=== PATIENT | male | born 1970 | race Caucasian/White ===

== ENCOUNTER 2020-06-29 21:13 | Inpatient (IN) | payer MEDICARE ==
[~2020-06-29] VITALS: Ht 188 cm; Wt 129.7 kg
--- NOTE | ~2020-06-29 | EEG ---
PATIENT:GINGER AHUJA MEDICAL RECORD: [id number] DATE OF : 74 LOCATION:D.230 D.ICU ADMISSION DATE: 06/29/20 REFERRING PHYSICIAN: INTERPRETING PHYSICIAN: JUANITA MORAES MD DATE OF SERVICE: 07/22/2020 DATE OF EE07/22/2020 ROOM: 2302 ORDERED BY: Dr. Moraes. CASE HISTORY: A 50-year-old male admitted on 06/30/2020 with pancreatitis, ultimately becoming necrotizing pancreatitis complicated by renal failure, metabolic encephalopathy, sepsis, thrombocytopenia. MEDICATIONS: Phentermine, vancomycin, vasopressin. PROCEDURE IN DETAIL: EEG done as a routine bedside portable recording using the standard 10/20 international electrode system. A 16 channel was used with 17th as EKG. Photic stimulation done as activation procedures. DESCRIPTION: EEG opens with the patient unresponsive, off sedation with record displaying diffuse low amplitude background slowing primarily in 3-4 Hz range, occasionally 4-5 Hz. No asymmetry in background slowing is noted. No epileptiform change such as spike, polyspike or spike and wave is seen. Photic stimulation did not yield a photoparoxysmal response. IMPRESSION: Prominently abnormal EEG with background slowing diffusely suggesting encephalopathy with etiologies that would include metabolic and infectious encephalopathies. No evidence of asymmetry suggesting a structural abnormality, no evidence of seizure. TRANSINT:[id number] Voice Confirmation ID: [id number] DOCUMENT ID: [id number] JUANITA MORAES MD CC: [id number] DICTATION DATE: 07/22/20 1214 LEAF CONDITIONER HELPER: 07/22/20 1343 ADM IN [facility] [address] [place] [address]
--- NOTE | 2020-06-29 21:45 | NUR ---
RECEIVED VIA [facility] FROM [facility], PLACED ON TELEMTRY-FLUTTER, ANAND-MichelleCHEST-TRIPLE LUMEN, HELPED EGG PROCESSOR CLEAN UP PT, BED IS LOW, SRX2, CALL LIGHT IN REACH, WILL CONTINUE PLAN OF CARE
--- NOTE | 2020-06-29 22:00 | NUR ---
DR CALIX ON FLOOR TO SEE PATIENT. ORDERS RECIEVED TO ADMIT TO UNIT, LIST OFF MEDICATIONS THAT PATIENT IS CURRENTLY TAKING FOR REVIEW IN AM. CONSULT FOR RENALS TO SEE PATIENT.
[2020-06-30] VITALS: BP 144/101
[2020-06-30] MEDS ORDERED: LASIX80 MG PO (00:09)
[2020-06-30] MEDS ORDERED: OMEPRAZOLE20 M1 PO (00:10)
[2020-06-30] MEDS ORDERED: DULCOLAX10 MG/SUPP RC (00:11)
[2020-06-30] MEDS ORDERED: FERROUS SULFAT325 MG PO (00:12)
[2020-06-30] MEDS ORDERED: NORMODYNE / TR200 MG PO (00:13)
[2020-06-30] MEDS ORDERED: MIRALAX17 GM PO (00:14)
[2020-06-30] MEDS ORDERED: CARAFATE1 G PO (00:15)
[2020-06-30 02:52] VITALS: BP 144/101; BMI 29.4
[2020-06-30 04:00] VITALS: BP 148/97
[2020-06-30 05:59] LABS: BASOPHILS 0.1 % (0-2); EOSINOPHILS 0.4 % (0-7); HEMATOCRIT 27.7 % (42.0-54.0); HEMOGLOBIN 9.3 g/dL (13.5-17.5); IMMATURE GRANULOCYTES 1.3 % (0-5); LYMPHOCYTES 4.7 % (15-50); MCH 27.4 pg (26.0-34.0); MCHC 33.6 g/dL (31.0-37.0); MCV 81.7 fL (80.0-100.0); MEAN PLATELET VOLUME 10.6 fL (7.4-10.4); MONOCYTES 5.9 % (2-11); NEUTROPHILS 87.6 % (40-80); PLATELET COUNT 244 10x3/uL (130-400); RBC 3.39 10x6/uL (4.20-6.10); RDW 16.5 % (11.5-14.5); WBC 13.8 10x3/uL (4.8-10.8)
[2020-06-30 06:51] LABS: ANION GAP 24.3 mmol/L (8-16); CALCIUM 7.1 mg/dL (8.5-10.1); CARBON DIOXIDE 16.9 mmol/L (21.0-32.0); CREATININE - SERUM 9.4 mg/dL (0.6-1.3); MAGNESIUM - SERUM 2.4 mg/dL (1.8-2.4); POTASSIUM - SERUM 4.2 mmol/L (3.5-5.1)
[2020-06-30 07:02] LABS: PHOSPHOROUS 10.1 mg/dL (2.5-4.9)
[2020-06-30 10:15] VITALS: BP 157/88
[2020-06-30 11:07] LABS: % SATURATION 21 % (15-55); IRON 21 ug/dl (35-150); TOTAL IRON BIND CAPACITY 98 ug/dl (260-445); UNSAT IRON BIND CAPACITY 77 ug/dl (150-375)
[2020-06-30 13:05] VITALS: BP 167/92
[2020-06-30 13:35] VITALS: BMI 29.4
[2020-06-30 15:28] VITALS: Ht 188 cm; Wt 129.7 kg
--- NOTE | 2020-06-30 16:14 | NUR ---
CARDIZEM BOLUS ADMINISTERED AND CARDIZEM DRIP INITIATED @5ML/HR VIA L.SUB CVL. WILL CTM.
--- NOTE | 2020-06-30 17:10 | NUR ---
CVL DRESSING CHANGED TO LEFT SUBCLAVIAN PER PROTOCOL. TRIPLE LUMEN WAS CLEANED THOROUGHLY WITH CHLOROHEXIDINE, NEW DRESSING PLACED, LINES CLEANED, AND DRESSING LABELED PER PROTOCOL. CVL IS SUTURED IN PLACE. LINES FLUSHED, CLAMPED, AND NEW SWAP CAPS IN PLACE ALL WHILE MAINTAINING PROPER STERILITY. CARDIZEM CURRENTLY INFUSING VIA BLUE PORT ON CVL TRIPPLE LUMEN TO LEFT SUBCLAVIAN AT 5ML/HR.
--- NOTE | 2020-06-30 17:15 | NUR ---
DRESSING CHANGED TO RIGHT JUGULAR TRIALYSIS PER PROTOCOL. MASSIVE AMOUNTS OF TAPPED WERE REMOVED FROM THE DRESSING WELL TAPE THAT WAS STUCK TO THE PATIENTS HEAD AND EAR. DRESSING ITSELF WAS REMOVED. SKIN WAS COMPLETELY SATURED WITH BROWN, BLOOD DRAINAGE. SKIN WAS SATURATED, MOIST, AND THE INCISION FOR THE CATHETER HAD BEGUN TO ERRODE. CLEANED SITE AND LINES WITH CHLOROHEXIDINE, APPLIED NEW DRESSING, AND LABELED DRESSING ALL WHILE MAINTAINING STERILILTY. PT WAS CLEANED THOROUGHLY. ONLY TWO SMALL SUTURES WERE VISIBLE THE LINE HAD NOTICEABLY BEEN MOVED AND ADJUSTED. NEW DRESSING IN PLACE. WILL CTM.
--- NOTE | 2020-06-30 19:30 | NUR ---
RECEIVED REPORT, WILL ASSUME CARE OF PT, IV-L.MARCELINA. TRIPLE LUMEN-CARDIMEREDITHM @5, RIJ-SL, WILL KEEP NPO AFTER MIDNIGHT-FOR HEMOSPLIT PLACEMENT TOMORROW, PT IS CONFUSED, [id number], DENIES ANY NEEDS AT THIS TIME, BED IS LOW, SRX2, CALL LIGHT IN REACH, WILL CONTINUE PLAN OF CARE
[2020-06-30 20:00] VITALS: BP 145/100
--- NOTE | 2020-06-30 23:28 | NUR ---
EKG COMPLETE, PLACED ON CHART
[2020-07-01] VITALS: BP 136/90
[2020-07-01 04:00] VITALS: BP 137/92
[2020-07-01 04:49] LABS: BASOPHILS 0.2 % (0-2); EOSINOPHILS 0.4 % (0-7); HEMATOCRIT 26.8 % (42.0-54.0); HEMOGLOBIN 8.6 g/dL (13.5-17.5); IMMATURE GRANULOCYTES 0.8 % (0-5); LYMPHOCYTES 3.2 % (15-50); MCHC 32.1 g/dL (31.0-37.0); MEAN PLATELET VOLUME 10.2 fL (7.4-10.4); NEUTROPHILS 90.4 % (40-80); PLATELET COUNT 234 10x3/uL (130-400); RBC 3.31 10x6/uL (4.20-6.10); RDW 16.4 % (11.5-14.5); WBC 16.7 10x3/uL (4.8-10.8)
[2020-07-01 05:06] LABS: ANION GAP 21.6 mmol/L (8-16); CARBON DIOXIDE 17.1 mmol/L (21.0-32.0); CREATININE - SERUM 10.8 mg/dL (0.6-1.3); POTASSIUM - SERUM 4.7 mmol/L (3.5-5.1)
[2020-07-01 05:09] LABS: CALCIUM 6.5 mg/dL (8.5-10.1)
--- NOTE | 2020-07-01 07:00 | NUR ---
RECEIVED REPORT. ASSUMED CARE OF PATIENT. CALL LIGHT WITHIN REACH. PATIENT RESTING WITH EYES CLOSED. RESP EVEN AND UNLABORED, EASILY AROUSED. ABD NOTED TO BE DISTENDED AND PATIENT COMPLAIN OF SLIGHT DISCOMFORT. NOC NURSE REPORTS PATIENT HAD 3 LOOSE BM. WHITE BOARD UPDATED, BEDSIDE SHIFT REPORT COMPLETE.
--- NOTE | 2020-07-01 07:23 | NUR ---
PATIENT LEFT UNIT VIA BED AT THIS TIME FOR HEMOSPLIT PLACEMENT. PATIENT ON CARDIZEM DRIP DURING TRANSFER. NO DISTRESS.
--- NOTE | 2020-07-01 09:14 | NUR ---
PATIENT RETURN FROM HEMOSPLIT PLACEMENT. HEMOSPLIT TO RIGHT JUGULAR. PATIENT ALERT. VSS - 08/19/74, 83, 02 2L/NC - 97%. CARDIZEM INFUSING AT 5MCG/KG/HR. TELEMETRY REAPPLIED. HEMOSPLIT DRESSING TO RIGHT CHEST CLEAN , DRY AND INTACT. NO BLEEDING OR SEEPING NOTED FROM SITE. PATIENT IS NOW AWAITING DIALYSIS.
--- NOTE | 2020-07-01 09:20 | NUR ---
SPOKE WITH AND REQUESTED KUB DUE TO ABD DISTENTION. PATIENT NOTED TO HAVE DECREASE BS TO RUQ, LUQ, LLQ. KUB ORDERED AT THIS TIME. PATIENT STATES HIS BELLY IS VERY TENDER.
--- NOTE | 2020-07-01 09:33 | NUR ---
KUB COMPLETE AT THIS TIME.
--- NOTE | 2020-07-01 13:14 | NUR ---
DIALYSIS NURSE CALLED AND PATIENT IS NOT ABLE TO TOLERATED PULLING OF ANY FLUID. PATIENT IS ONLY BEING CLEANED AT THIS TIME. VSS AT THIS TIME.
--- NOTE | 2020-07-01 16:46 | NUR ---
NGT PLACED VIA LEFT NARE AT THIS TIME. NO COUGHING NOTED DURING TUBE PLACEMENT AND GREEN BILE COLORED SECRETIONS FLOWING FROM NGT. STAT CXR ORDERED TO CONFIRM PLACEMENT. PATIENT TOLERATED PLACEMENT WELL. NO DISTRESS.
[2020-07-01 17:22] VITALS: BP 121/84
--- NOTE | 2020-07-01 18:19 | NUR ---
ABD XRAY CONFIRMS PLACEMENT OF NGT PLACED BY THIS OUTSOLES CHANNEL OPENER. PATIENT NOW CONNECTED TO LIWS WITH EMERALD GREEN GASTRIC SECRETIONS TO WALL SUCTION CANISTER. PATIENT TOLERATES SUCTION WELL. NO DISTRESS.
[2020-07-01 20:00] VITALS: BP 119/77
--- NOTE | 2020-07-01 21:48 | NUR ---
PT INCONTINENT OF BOWEL. EMAIL DEPLOYMENT SPECIALIST AT BED SIDE, BATH AND LINEN CHANGE COMPLETE.
[2020-07-02 04:00] VITALS: BP 134/89
[2020-07-02 06:02] LABS: BASOPHILS 0.2 % (0-2); EOSINOPHILS 0.4 % (0-7); HEMATOCRIT 26.3 % (42.0-54.0); HEMOGLOBIN 8.4 g/dL (13.5-17.5); IMMATURE GRANULOCYTES 0.7 % (0-5); LYMPHOCYTES 5.8 % (15-50); MCH 26.2 pg (26.0-34.0); MCHC 31.9 g/dL (31.0-37.0); MCV 81.9 fL (80.0-100.0); MEAN PLATELET VOLUME 10.4 fL (7.4-10.4); MONOCYTES 6.5 % (2-11); NEUTROPHILS 86.4 % (40-80); PLATELET COUNT 210 10x3/uL (130-400); RBC 3.21 10x6/uL (4.20-6.10); RDW 16.5 % (11.5-14.5)
[2020-07-02 06:20] LABS: ALBUMIN 1.9 g/dL (3.4-5.0); ANION GAP 21.2 mmol/L (8-16); BILIRUBIN - DIRECT 0.32 mg/dL (0.00-0.30); BILIRUBIN - INDIRECT 0.44 mg/dL (0.00-1.00); BILIRUBIN - TOTAL 0.76 mg/dL (0.2-1.3); POTASSIUM - SERUM 4.2 mmol/L (3.5-5.1); PROTEIN - SERUM 5.5 g/dL (6.4-8.2)
[2020-07-02 06:26] LABS: CREATININE - SERUM 6.8 mg/dL (0.6-1.3)
[2020-07-02 06:27] LABS: CALCIUM 6.6 mg/dL (8.5-10.1)
[2020-07-02 11:13] LABS: HEP B CORE AB TOTAL Positive (Negative); HEPATITIS C ANTIBODY <0.1 S/CO RAT (0.0-0.9)
--- NOTE | 2020-07-02 12:32 | OP ---
PATIENT NAME: GINGER AHUJA MEDICAL RECORD: [id number] :74 LOCATION:D. D.2126 ADMISSION DATE:06/29/20 SURGEON: VAUGHN HUBER MD DATE OF OPERATION: 07/01/2020 PREOPERATIVE DIAGNOSIS: End-stage renal disease without chronic access for hemodialysis. POSTOPERATIVE DIAGNOSIS: End-stage renal disease without chronic access for hemodialysis. PROCEDURES: 1. Insertion of right internal jugular 19-cm HemoSplit catheter (tunneled cuffed dual-lumen hemodialysis catheter) under fluoroscopic guidance. 2. Immediate surgeon interpretation of the fluoroscopic images. SURGEON: Vaughn Huber MD CONTINUING EDUCATION INSTRUCTOR: None. BLOOD LOSS: Minimal. ANESTHESIA: Local with IV sedation. COMPLICATIONS: None. The risks, possible complications and alternatives to the procedure were explained to the patient. He elects to proceed. The discussion specifically included, but was not limited to, bleeding requiring emergency reoperation, infection, great vessel injury as well as pneumothorax. No radiologist was present for this procedure. Static fluoroscopic images were obtained and are kept in the PACS system. The surgeon interpretation of the radiographic images is dictated within the body of this operative note. OPERATIVE COURSE: The patient was conveyed the operating room electively on 07/01/2020. IV sedation was induced by the anesthesia staff. The right neck and right upper chest were sterilely prepped and draped. A local anesthetic was used to infiltrate the skin and subcutaneous tissues of the right upper anterior chest as well as the right neck. Under ultrasonographic guidance, I percutaneously accessed the right internal jugular vein in an antegrade fashion. A guidewire passed easily. It was visualized under fluoroscopy. An incision was accomplished around the wire. A counterincision was accomplished in the right anterior superior infraclavicular chest. I tunneled a 19-cm HemoSplit catheter from the chest incision to the neck incision. Over the wire, dilators were advanced under fluoroscopic guidance. A dilator sheath was then advanced. The dilator and wire were removed. The tips of the HemoSplit catheter were then advanced down through the sheath. The Peel-Away sheath was then removed. I then pulled back on the HemoSplit catheter flange so that the cuff was seated in the subcutaneous tissues. Under fluoroscopy, there was no radiographic evidence of complication. No pneumothorax. No kinking or twisting of the HemoSplit catheter. The subdermis was approximated with interrupted 4-0 Vicryls. The flange of the HemoSplit catheter was sutured to the underlying skin with 2-0 nylons. Both lumens of the HemoSplit catheter flushed easily and aspirated dark, nonpulsatile blood. Topped off both lumens of the HemoSplit catheter with OPERATIVE REPORT [id number] GINGER AHUJA the appropriate amount of concentrated heparin. Caps were then applied. The patient has a Trialysis catheter on the right side as well. This was removed. The incision was closed with a horizontal mattress 3-0 Vicryl Rapide suture. We then cleaned the right neck with hydrogen peroxide and a sterile dressing was applied. The patient was then conveyed back to his room. TRANSINT:[id number] Voice Confirmation ID: [id number] DOCUMENT ID: [id number] VAUGHN HUBER MD at 1232 CC: OSCAR BRUNO and JAMI CALIX MD [id number] DICTATION DATE: 07/01/20919 PROPOSAL DIRECTOR: 07/01/20 1755 ADM IN [facility] [address] [place] [id number]
--- NOTE | 2020-07-02 13:18 | NUR ---
Nutrition Follow-up: NGT in place. Noted SBFT shows PSBO. POD 1 hemosplit placement. Diet: NPO Wt: 229# (07/01) Labs noted: Na 135, K+ 4.2, Glu 176, Ca 6.6, Alb 1.9 Meds reviewed -If unable to advance diet within 24-48 hrs, rec consider nutrition support as medically feasible. -Monitor wt. -RD following.
[2020-07-02 20:00] VITALS: BP 154/100
[2020-07-03] VITALS (7 sets, daily range): BP systolic 90–172; BP diastolic 44–111
[2020-07-03 06:05] LABS: BASOPHILS 0.1 % (0-2); EOSINOPHILS 0.1 % (0-7); HEMATOCRIT 26.7 % (42.0-54.0); HEMOGLOBIN 8.5 g/dL (13.5-17.5); IMMATURE GRANULOCYTES 0.8 % (0-5); LYMPHOCYTES 5.6 % (15-50); MCH 26.1 pg (26.0-34.0); MCHC 31.8 g/dL (31.0-37.0); MCV 81.9 fL (80.0-100.0); MEAN PLATELET VOLUME 11.5 fL (7.4-10.4); MONOCYTES 3.8 % (2-11); NEUTROPHILS 89.6 % (40-80); PLATELET COUNT 226 10x3/uL (130-400); RBC 3.26 10x6/uL (4.20-6.10); RDW 16.5 % (11.5-14.5)
[2020-07-03 06:32] LABS: ANION GAP 20.7 mmol/L (8-16); CALCIUM 7.7 mg/dL (8.5-10.1); CREATININE - SERUM 6.6 mg/dL (0.6-1.3); POTASSIUM - SERUM 3.7 mmol/L (3.5-5.1)
--- NOTE | 2020-07-03 16:14 | NUR ---
PT TRENDING INTO HTN DUE TO NOT GETTING ORAL MEDS WHILE NGT IN PLACE. CALL PLACED TO PHYSICAL THERAPIST CLINIC DIRECTOR AND ORDERS FOR PRN MEDS GIVEN. WILL DOSE AND MONITOR.
--- NOTE | 2020-07-03 16:47 | MORECARE ---
CASE MANAGEMENT DISCHARGE SUMMARY PATIENT: GINGER AHUJA UNIT: [id number] ADM DATE: 06/29/20 AGE: 49 : 74 SEX: M ROOM/BED: D.2126 AUTHOR: JUAN JOSEPH PHYSICIAN: REFERRING PHYSICIAN: JAMI CALIX MD DATE OF SERVICE: 07/03/20 Discharge Plan Patient Name: GINGER AHUJA [facility] [facility] 1970 Planned Disposition: Anticipated Discharge Date: Discharge Date: Expected LOS: Initial Reviewer: [email or web address] Initial Review Date: 06/29/2020 Generated: 07/03/20 5:46 pm Comments DCP- Discharge Planning Updated by [email or web address]: Britt Patricio on 07/03/20 3:[address] Per Shelley Valente, Lucía union representative, is working on HD chair/time/place. Patient Name: GINGER AHUJA Page [phone] at 1647 All edits/amendments must be made on the electronic document DICTATION DATE: 07/03/201645 CLIP ON SUNGLASSES ASSEMBLER: SAVANAH 07/03/201645 RPT#: [id number] DC DATE: STATUS: ADM IN [facility] [address] [place] [address] END OF REPORT
[2020-07-04] VITALS: BP 163/89
[2020-07-04 04:00] VITALS: BP 199/106
[2020-07-04 05:51] LABS: BASOPHILS 0.2 % (0-2); EOSINOPHILS 0.3 % (0-7); HEMATOCRIT 26.3 % (42.0-54.0); HEMOGLOBIN 8.3 g/dL (13.5-17.5); IMMATURE GRANULOCYTES 0.8 % (0-5); MCH 25.7 pg (26.0-34.0); MCHC 31.6 g/dL (31.0-37.0); MCV 81.4 fL (80.0-100.0); MEAN PLATELET VOLUME 10.2 fL (7.4-10.4); MONOCYTES 4.9 % (2-11); NEUTROPHILS 87.8 % (40-80); PLATELET COUNT 203 10x3/uL (130-400); RBC 3.23 10x6/uL (4.20-6.10); RDW 16.7 % (11.5-14.5); WBC 10.2 10x3/uL (4.8-10.8)
[2020-07-04 05:56] LABS: ANION GAP 23.5 mmol/L (8-16); CALCIUM 7.7 mg/dL (8.5-10.1); CARBON DIOXIDE 20.9 mmol/L (21.0-32.0)
[2020-07-04 06:00] LABS: CREATININE - SERUM 9.1 mg/dL (0.6-1.3); POTASSIUM - SERUM 4.4 mmol/L (3.5-5.1)
[2020-07-04 09:58] VITALS: BP 145/102
--- NOTE | 2020-07-04 14:39 | NUR ---
Nutrition Follow-up: Discussed in IDT meeting. Patient partial bowel obstruction is apparently improving. He continues on HD- MWF. Still NPO with NGT to LIS. Recommend advance diet as soon as medically feasible. If unable to advance diet within 24hrs recommend nutrition support. Consider starting ProCalamine as patient has not had nutrition since admit. RD following.
[2020-07-04 16:16] VITALS: BP 160/104
[2020-07-04 16:21] LABS: AMYLASE - SERUM 73 U/L (25-115); LIPASE 141 U/L (73-393)
--- NOTE | 2020-07-04 17:20 | NUR ---
CAME IN TO DO ROUTINE GB AT 1645. PT IS HAVING DIALYSIS UNTIL 1999. I CONTACTED DR. ALCALA WHO APPROVED WAITING TO DO THIS 1ST THING IN AM. TOLD NURSE PT TO BE NPO AFTER MIDNIGHT. GÓMEZ,RDMS 0015
--- NOTE | 2020-07-04 20:14 | NUR ---
RECIEVED UP IN BED WITH HOB ELEVATED AND EYES CLOSED. AROUSES TO VERBAL STIMULI. ORIENTED TO PERSON ONLY. O2@ 4 LITERS PER N/C. IV TO LT CHEST CENTRAL LINE. TELEMETRY IN PLACE. HEMOSPLIT TO RT CHEST. CARDIZEM INFUSING AT 5CC/HR. NG TUBE TO LT NARE WITH LOW SUCTIONING ON. CANASTER HAS ALMOST BLACK COLOR DRAINAGE. RED COLOR BLOOD IN TUBING AND ALSO YELLOW DRAINAGE. ABD STILL DISTENDED. SCABS TO BUTTOCKS AND BACK. ALSO UNDER RIGHT ARM. NO S/S OF DISTRESS OBSERVED.
[2020-07-04 20:34] VITALS: BP 138/84
[2020-07-05 00:57] VITALS: BP 138/83
[2020-07-05 05:33] VITALS: BP 141/86
[2020-07-05 06:53] LABS: BASOPHILS 0.2 % (0-2); EOSINOPHILS 1.9 % (0-7); HEMATOCRIT 24.1 % (42.0-54.0); IMMATURE GRANULOCYTES 1.2 % (0-5); LYMPHOCYTES 8.1 % (15-50); MCHC 31.1 g/dL (31.0-37.0); MEAN PLATELET VOLUME 10.7 fL (7.4-10.4); MONOCYTES 6.4 % (2-11); NEUTROPHILS 82.2 % (40-80); PLATELET COUNT 205 10x3/uL (130-400); RBC 2.89 10x6/uL (4.20-6.10); WBC 9.3 10x3/uL (4.8-10.8)
[2020-07-05 06:54] LABS: HEMOGLOBIN 7.5 g/dL (13.5-17.5)
[2020-07-05 06:55] LABS: MCV 83.4 fL (80.0-100.0)
[2020-07-05 06:57] LABS: ALBUMIN 1.7 g/dL (3.4-5.0); ANION GAP 18.9 mmol/L (8-16); BILIRUBIN - TOTAL 0.59 mg/dL (0.2-1.3); CALCIUM 7.5 mg/dL (8.5-10.1); CARBON DIOXIDE 23.3 mmol/L (21.0-32.0); POTASSIUM - SERUM 4.2 mmol/L (3.5-5.1); PROTEIN - SERUM 5.7 g/dL (6.4-8.2)
[2020-07-05 06:59] LABS: CREATININE - SERUM 6.4 mg/dL (0.6-1.3)
[2020-07-05 07:00] VITALS: BP 132/53
--- NOTE | 2020-07-05 07:00 | NUR ---
RECEIVED REPORT. ASSUMED CARE OF PATIENT. CALL LIGHT WITHIN REACH. NGT CONNECTED TO LIWS. PATIENT CONVERSING WELL THIS AM. BEDSIDE SHIFT REPORT COMPLETE. WHITE BOARD UPDATED. NO DISTRESS.
--- NOTE | 2020-07-05 11:32 | NUR ---
RESTING WITH EYES CLOSED, CONTINUES TO LIWS FROM LEFT NARE NGT. NO DISTRESS. AWAITING BLOOD BANK TO TYPE AND CROSS ONE UNIT.
--- NOTE | 2020-07-05 12:30 | NUR ---
BLOOD TRANSFUSION INITIATED AT 1235. PATIENT TOLERATING INFUSION WELL. VSS. CALL LIGHT WITHIN REACH. NO DISTRESS.
--- NOTE | 2020-07-05 13:50 | NUR ---
CONTINUES TO TOLERATED BLOOD TRANSFUSION WELL. VSS. PATIENT RESTING WITH EYES CLOSED, RESP EVEN AND UNLABORED. CALL LIGHT WITHIN REACH.
[2020-07-05 15:00] VITALS: BP 145/87
--- NOTE | 2020-07-05 20:10 | NUR ---
RECIEVED LAYING IN BED WITH HOB ELEVATED. NG TUBE IN PLACE WITH LOW CONT SUCTION. DRAINAGE IS A LIGHT YELLOW. ABD DISTENDED. IV TO LT SUBCLAVIAN CENTRAL LINE. NS @ 50CC/HR AND CRDIZEM AT 5CC/HR INFUSING. HEMOSPLIT TO RT CHEST. TELEMETRY IN PLACE. MOTHER AT BEDSIDE. DENIES ANY NEEDS AT THIS TIME.
[2020-07-05 20:50] VITALS: BP 144/86
[2020-07-06 00:50] VITALS: BP 130/80
[2020-07-06 04:36] VITALS: BP 142/81
--- NOTE | 2020-07-06 07:00 | NUR ---
RECEIVED REPORT. ASSUMED CARE OF PATIENT. PATIENT RESTING WELL WITH EYES CLOSED. EASILY AROUSED. BEDSIDE SHIFT REPORT COMPLETE. WHITE BOARD UPDATED. PATIENT SUCTION TO LIWS NOW TURNED BACK ON. DENIES NEEDS. NO DISTRESS. CALL LIGHT WITHIN REACH.
[2020-07-06 07:13] LABS: INR 2.19 (0.85-1.17); PROTIME 24.1 SECONDS (11.6-15.0)
[2020-07-06 07:23] LABS: ALBUMIN 1.6 g/dL (3.4-5.0); ANION GAP 21.5 mmol/L (8-16); BILIRUBIN - TOTAL 0.66 mg/dL (0.2-1.3); CARBON DIOXIDE 20.6 mmol/L (21.0-32.0); POTASSIUM - SERUM 4.1 mmol/L (3.5-5.1); PROTEIN - SERUM 5.7 g/dL (6.4-8.2)
[2020-07-06 07:25] LABS: CREATININE - SERUM 8.6 mg/dL (0.6-1.3)
[2020-07-06 07:31] LABS: CALCIUM 6.5 mg/dL (8.5-10.1)
[2020-07-06 07:35] LABS: BASOPHILS 0.5 % (0-2); EOSINOPHILS 2.8 % (0-7); HEMATOCRIT 25.4 % (42.0-54.0); IMMATURE GRANULOCYTES 1.6 % (0-5); LYMPHOCYTES 6.8 % (15-50); MCH 26.1 pg (26.0-34.0); MCHC 31.5 g/dL (31.0-37.0); MEAN PLATELET VOLUME 10.5 fL (7.4-10.4); MONOCYTES 6.2 % (2-11); NEUTROPHILS 82.1 % (40-80); PLATELET COUNT 210 10x3/uL (130-400); RBC 3.06 10x6/uL (4.20-6.10); RDW 16.5 % (11.5-14.5); WBC 8.5 10x3/uL (4.8-10.8)
[2020-07-06 07:46] VITALS: BP 147/86
[2020-07-06 12:17] VITALS: BP 131/86
[2020-07-06 17:07] VITALS: BP 130/84
--- NOTE | 2020-07-06 18:00 | NUR ---
INCONTINENT CARES PROVIDED, LINENS CHANGED. STOOL SAMPLE FOR OB COLLECTED AT THIS TIME AND SUBMITTED TO LAB. CALL LIGHT WITHIN REACH. SUCTION PATENT TO LIWS. NO DISTRESS.
--- NOTE | 2020-07-06 20:20 | NUR ---
RECIEVED UP IN BED WITH HOB ELEVATED. NG TUBE TO LT ARM WITH LOW CONTINUOUS SUCTION. HAS GREEN COLOR BILE IN TUBING. CENTRAL LINE TO LT CHEST WITH NS @ 50CC/HR AND CARDIZEM AT 5CC/HR. TELEMETRY IN PLACE. NO S/S OF DISTRESS OBSERVED.
[2020-07-06 21:02] VITALS: BP 139/91
[2020-07-07 00:45] VITALS: BP 132/87
--- NOTE | 2020-07-07 03:31 | NUR ---
PT CALLEDS OUT HELP TO THIS NURSE. UPON ENTERING ROOM SUCTION TUBING HAD BEEN DISCONNECTED AND GASTRIC CONTENTS WERE ON THE BED. THIS NURSE NOTICED BLOOD ON SHEET . BLEEDING FROM IJ SITE THAT HAD BEEN D/C'D. REPLACEED DRESSING FRI AND SAT D/T BEING PULLED OFF. BANDAID PUT IN PLACE AND WAS BLOOD SOAKED WELL HOB. SITE LOOKED MORE OPEN. PT HAD BLOOD ON HIS LEFT HAND AND UNDER HIS NAILS. HELD PRESSURE TO SIE AND THAN PLACED A PRESSURE DRESSING. NG TUBING RECONNECTED AND COMPLETE BED CHANGE AND GOWN CHANGE DONE. SITE HAS STOPPED BLEEDING AT THIS TIME. EXPLAINED TO PT THAT IF IT STARTED TO BLEED AGAIN WE WOULD HAVE TO USE SAND BAG TO STOP THE BLEEDING. VOICED UNDERSTANDING.
[2020-07-07 06:42] LABS: ALBUMIN 1.5 g/dL (3.4-5.0); ANION GAP 24.6 mmol/L (8-16); BILIRUBIN - TOTAL 0.55 mg/dL (0.2-1.3); CARBON DIOXIDE 17.6 mmol/L (21.0-32.0); CREATININE - SERUM 9.9 mg/dL (0.6-1.3); POTASSIUM - SERUM 4.2 mmol/L (3.5-5.1); PROTEIN - SERUM 5.6 g/dL (6.4-8.2)
[2020-07-07 06:45] LABS: CALCIUM 6.9 mg/dL (8.5-10.1)
[2020-07-07 07:54] LABS: BASOPHILS 0.3 % (0-2); EOSINOPHILS 3.1 % (0-7); HEMATOCRIT 26.3 % (42.0-54.0); HEMOGLOBIN 8.2 g/dL (13.5-17.5); IMMATURE GRANULOCYTES 3.8 % (0-5); LYMPHOCYTES 5.8 % (15-50); MCH 25.9 pg (26.0-34.0); MCHC 31.2 g/dL (31.0-37.0); MEAN PLATELET VOLUME 10.8 fL (7.4-10.4); MONOCYTES 7.5 % (2-11); NEUTROPHILS 79.5 % (40-80); PLATELET COUNT 235 10x3/uL (130-400); RBC 3.17 10x6/uL (4.20-6.10); RDW 16.8 % (11.5-14.5); WBC 9.4 10x3/uL (4.8-10.8)
[2020-07-07 09:00] VITALS: BP 138/87
[2020-07-07 09:39] LABS: MAGNESIUM - SERUM 2.3 mg/dL (1.8-2.4)
[2020-07-07 09:54] LABS: PHOSPHOROUS 14.7 mg/dL (2.5-4.9)
--- NOTE | 2020-07-07 11:25 | NUR ---
Nutrition follow-up: Received order from Dr. Garcia to start TPN Chart reviewed Labs reviewed Order sent to pharmacy RDN following.
[2020-07-07 11:40] VITALS: BP 142/85
[2020-07-07 13:02] LABS: HEMATOCRIT 27.8 % (42.0-54.0); HEMOGLOBIN 8.7 g/dL (13.5-17.5); MCH 25.8 pg (26.0-34.0); MCHC 31.3 g/dL (31.0-37.0); MCV 82.5 fL (80.0-100.0); MEAN PLATELET VOLUME 10.7 fL (7.4-10.4); PLATELET COUNT 235 10x3/uL (130-400); RBC 3.37 10x6/uL (4.20-6.10); RDW 16.7 % (11.5-14.5); WBC 9.1 10x3/uL (4.8-10.8)
[2020-07-07 14:52] LABS: LYMPHOCYTES 11 % (15-50); MONOCYTES 1 % (2-11); NEUTROPHILS 85 % (40-80); PLATELET ESTIMATE NORMAL
[2020-07-07 16:06] VITALS: BP 125/86
--- NOTE | 2020-07-07 19:30 | NUR ---
RECEIVED BEDSIDE REPORT. ROUNDING COMPLETE. PATIENT RESTING COMFORTABLY IN BED. RESPIRATIONS ARE EVEN AND UNLABORED. NO S/S OF DISTRESS. NO C/O PAIN. CALL LIGHT WITHIN REACH. WILL CPOC.
[2020-07-07 20:00] VITALS: BP 102/75
[2020-07-08] VITALS: BP 121/81
[2020-07-08 04:00] VITALS: BP 143/95
--- NOTE | 2020-07-08 04:41 | NUR ---
CHANGED DRESSING RIGHT JUGULAR AND RIGHT HEME SPLIT.
[2020-07-08 05:53] LABS: ALBUMIN 1.4 g/dL (3.4-5.0); BILIRUBIN - TOTAL 0.55 mg/dL (0.2-1.3); CREATININE - SERUM 7.8 mg/dL (0.6-1.3); POTASSIUM - SERUM 3.6 mmol/L (3.5-5.1); PROTEIN - SERUM 5.6 g/dL (6.4-8.2)
[2020-07-08 06:25] LABS: ANION GAP 18.7 mmol/L (8-16); CALCIUM 6.7 mg/dL (8.5-10.1); CARBON DIOXIDE 22.9 mmol/L (21.0-32.0)
[2020-07-08 06:49] LABS: BASOPHILS 1.6 % (0-2); EOSINOPHILS 2.4 % (0-7); HEMATOCRIT 25.3 % (42.0-54.0); IMMATURE GRANULOCYTES 8.7 % (0-5); LYMPHOCYTES 5.9 % (15-50); MCH 26.1 pg (26.0-34.0); MCHC 31.6 g/dL (31.0-37.0); MCV 82.4 fL (80.0-100.0); MEAN PLATELET VOLUME 10.8 fL (7.4-10.4); MONOCYTES 6.6 % (2-11); NEUTROPHILS 74.8 % (40-80); PLATELET COUNT 256 10x3/uL (130-400); RBC 3.07 10x6/uL (4.20-6.10); WBC 11.3 10x3/uL (4.8-10.8)
[2020-07-08 07:06] VITALS: BP 140/92
--- NOTE | 2020-07-08 07:20 | NUR ---
RECIEVE REPORT. RESTING IN BED WITH EYES CLOSED. IV INFUSING ORDERED. NO SIGNS OF DISTRESS. CONTINUE PLAN OF CARE AND SAFETY PRECAUTIONS.
--- NOTE | 2020-07-08 08:22 | NUR ---
Nutrition Follow-up: TPN @ 40 with lipids q 48 hrs. Labs reviewed. Glu elevated. Remains NPO. Wt: 229# (07/01) Labs noted: Na 137, K+ 3.6, Cl 99, CO2 22.9, Glu 217, Ca 6.7, Alb 1.4 Meds noted: Calcitriol, Protonix, NS @ 50, Florajen, Ferrous Sulfate, Carafate, Miralax, electrolyte protocol -Rate increased to 60 mL/hr; IVF decreased. Insulin added 2/2 hyperglycemia. -RD following.
[2020-07-08 08:44] LABS: MAGNESIUM - SERUM 2.2 mg/dL (1.8-2.4)
[2020-07-08 08:50] LABS: PHOSPHOROUS 10.5 mg/dL (2.5-4.9)
--- NOTE | 2020-07-08 11:00 | NUR ---
PT WAS ABLE TO STAND UP WITH ASSISTANCE FROM PHYSICAL THERAPY USING WALKER. ASSISTED BACK TO BED. RAILS UP X2. BED IN LOWEST POSITION. CALL LIGHT WITHIN REACH. WILL CONTINUE TO MONITOR.
[2020-07-08 11:03] VITALS: BP 128/92
--- NOTE | 2020-07-08 14:41 | MORECARE ---
CASE MANAGEMENT DISCHARGE SUMMARY PATIENT: GINGER AHUJA UNIT: [id number] ADM DATE: 06/29/20 AGE: 49 : 74 SEX: M ROOM/BED: D.5166 AUTHOR: JUAN JOSEPH PHYSICIAN: REFERRING PHYSICIAN: JAMI CALIX MD DATE OF SERVICE: 07/08/20 Discharge Plan Patient Name: GINGER AHUJA [facility] [facility] 1970 Planned Disposition: Anticipated Discharge Date: Discharge Date: Expected LOS: Initial Reviewer: [email or web address] Initial Review Date: 06/29/2020 Generated: 07/08/20 3:41 pm DCP- Discharge Planning Updated by [email or web address]: Britt Patricio on 07/03/20 3:[address] Per Lucía Reyes brand representative, is working on HD chair/time/place. Coverage Notice Reviewer: [email or web address] Irena Robledo Notice Issued Date-Time: 07/08/2020 14:30 Notice Type: Patient Choice Letter Notice Delivered To: Patient Relationship to Patient: Self Receivable Manager Name: Delivery Method: HAND - Hand Delivered Lindsey Days: Prior Verbal Notification: Recipient Understood Notice: Yes Recipient Signature: Yes Med Rec Note Co-signed by Attending: Coverage Notice Comment: [facility] Last DP export: 07/03/20 3:47 p Patient Name: GINGER AHUJA Page [phone] at 1441 All edits/amendments must be made on the electronic document DICTATION DATE: 07/08/20 1441 PREMIUM CANCELLATION CLERK: SAVANAH 07/08/20 1441 RPT#: [id number] DC DATE: STATUS: ADM IN [facility] [address] [place] [address] END OF REPORT
[2020-07-08 14:57] VITALS: BP 110/84
--- NOTE | 2020-07-08 16:20 | NUR ---
REHAB PRESCREENING Rehab referral received and chart reviewed. Mr. Zuluaga is still having a workup done. Rehab will continue to follow him for discharge plans. Thank you for this referral! Alma Delia Walters, TAX TECHNICIAN Rehab PD
--- NOTE | 2020-07-08 17:07 | NUR ---
ALERT AND ORIENTED X4. SITTING UP IN BED. ADVANCE NG TUBE ORDERED. CONTINUE PAIN MANAGEMENT ORDERED. DENIES ANY NEEDS. CONTINUE PLAN OF CARE AND SAFETY PRECAUTIONS.
--- NOTE | 2020-07-08 19:44 | NUR ---
RECEIVED BEDSIDE REPORT. ROUNDING COMPLETE. PATIENT IS ALERT AND ORIENTED, RESTING COMFORTABLY IN BED. RESPIRATIONS ARE EVEN AND UNLABORED. NO S/S OF DISTRESS. NO C/O PAIN. CALL LIGHT WITHIN REACH. WILL CPOC.
[2020-07-08 20:00] VITALS: BP 118/79
[2020-07-09] VITALS: BP 128/85
[2020-07-09 04:00] VITALS: BP 124/81
[2020-07-09 05:43] LABS: ALBUMIN 1.3 g/dL (3.4-5.0); ANION GAP 20.1 mmol/L (8-16); BILIRUBIN - TOTAL 0.52 mg/dL (0.2-1.3); CARBON DIOXIDE 19.9 mmol/L (21.0-32.0); CREATININE - SERUM 9.4 mg/dL (0.6-1.3); PROTEIN - SERUM 5.3 g/dL (6.4-8.2)
[2020-07-09 06:16] LABS: BASOPHILS 1.2 % (0-2); EOSINOPHILS 1.7 % (0-7); HEMATOCRIT 25.4 % (42.0-54.0); HEMOGLOBIN 7.8 g/dL (13.5-17.5); IMMATURE GRANULOCYTES 9.7 % (0-5); LYMPHOCYTES 4.8 % (15-50); MCH 25.8 pg (26.0-34.0); MCHC 30.7 g/dL (31.0-37.0); MCV 84.1 fL (80.0-100.0); MEAN PLATELET VOLUME 10.9 fL (7.4-10.4); MONOCYTES 5.5 % (2-11); NEUTROPHILS 77.1 % (40-80); PLATELET COUNT 296 10x3/uL (130-400); RBC 3.02 10x6/uL (4.20-6.10); RDW 16.9 % (11.5-14.5); WBC 15.6 10x3/uL (4.8-10.8)
[2020-07-09 08:14] VITALS: BP 129/75
--- NOTE | 2020-07-09 08:54 | NUR ---
PT GIVEN ORAL CONTRAST FOR CT ABDOMEN, TUBE CLAMPED. DIALYSIS NOTIFIED OF TEST, STATES WILL DIALYZE LATER.
[2020-07-09 12:50] VITALS: BP 125/85
[2020-07-09 13:11] LABS: MAGNESIUM - SERUM 2.3 mg/dL (1.8-2.4)
[2020-07-09 13:18] LABS: PHOSPHOROUS 9.6 mg/dL (2.5-4.9)
--- NOTE | 2020-07-09 14:24 | NUR ---
Nutrition Follow-up: TPN @ 60 mL/hr + lipids q 48 hrs. Labs reviewed. Glu elevated. Wt: 213# (07/08) Labs noted: Na 135, K+ 4.0, Glu 279, Ca 7.0, Alb 1.3, PO4 9.6, Mg 2.3 Meds noted: Calcitriol, Protonix, Florajen, Carafate, Zofran, Miralax -No changes made to TPN formula. -Pt needs to be on sliding scale insulin per TPN protocol. -Monitor wt. -RD following.
[2020-07-09 17:21] VITALS: BP 114/68
[2020-07-09 20:00] VITALS: BP 114/73
[2020-07-10] VITALS: BP 117/80
[2020-07-10 04:00] VITALS: BP 147/98
[2020-07-10 05:13] LABS: ALBUMIN 1.1 g/dL (3.4-5.0); ANION GAP 15.1 mmol/L (8-16); BILIRUBIN - TOTAL 0.5 mg/dL (0.2-1.3); CALCIUM 7.3 mg/dL (8.5-10.1); CARBON DIOXIDE 21.6 mmol/L (21.0-32.0); CREATININE - SERUM 7.3 mg/dL (0.6-1.3); MAGNESIUM - SERUM 2.2 mg/dL (1.8-2.4); POTASSIUM - SERUM 3.7 mmol/L (3.5-5.1); PROTEIN - SERUM 5.2 g/dL (6.4-8.2)
[2020-07-10 05:16] LABS: PHOSPHOROUS 6.4 mg/dL (2.5-4.9)
[2020-07-10 05:45] LABS: HEMATOCRIT 25.5 % (42.0-54.0); HEMOGLOBIN 7.8 g/dL (13.5-17.5); MCH 25.4 pg (26.0-34.0); MCHC 30.6 g/dL (31.0-37.0); MCV 83.1 fL (80.0-100.0); MEAN PLATELET VOLUME 10.8 fL (7.4-10.4); PLATELET COUNT 317 10x3/uL (130-400); RBC 3.07 10x6/uL (4.20-6.10); RDW 16.7 % (11.5-14.5); WBC 16.3 10x3/uL (4.8-10.8)
[2020-07-10 06:27] LABS: EOSINOPHILS 1 % (0-7); LYMPHOCYTES 6 % (15-50); MONOCYTES 4 % (2-11); NEUTROPHILS 60 % (40-80); PLATELET ESTIMATE NORMAL
[2020-07-10 08:07] VITALS: BP 145/100
[2020-07-10 08:55] LABS: AMYLASE - SERUM 50 U/L (25-115); LIPASE 89 U/L (73-393)
--- NOTE | 2020-07-10 09:44 | NUR ---
PT BP UP SO PRN IV MED GIVEN. WILL RECHECK. HE ALSO REFUSED THERAPY AND IS NOT MOVING AT ALL. NGT IN PLACE WITH MOST OF CANISTER FILLING EACH SHIFT. CT ABD DONE YESTERDAY.
[2020-07-10 11:16] VITALS: BP 138/96
--- NOTE | 2020-07-10 11:30 | NUR ---
Nutrition Follow-up: Pt remains NPO with NGT in place. TPN @ 60 mL/hr + lipids q 48 hrs. Noted IVF d/c'd per MD and insulin added. Wt: 213# (07/08) Labs noted: Na 133, K+ 3.7, Glu 283, Ca 7.3, PO4 6.4, Mg 2.2, Alb 1.1 Meds noted: Humalog, Calcitriol, Protonix, Florajen, Ferrous Sulfate, Carafate, Miralax -No changes made to TPN. -Monitor wt. -RD following.
[2020-07-10 15:12] VITALS: BP 132/90
--- NOTE | 2020-07-10 17:57 | NUR ---
NGT POSITIONED AND RETAPED FOR PATENCY. PT HAS BEEN HAVING DRY HEAVES. SAT UPRIGHT IN BED, IRRIGATED TUBE.
--- NOTE | 2020-07-10 19:30 | NUR ---
PT IN BED, EYES CLOSED, RESP EVEN AND UNLABORED, NO DISTRESS NOTED, CL IN REACH, SR UP X 2.
[2020-07-10 20:22] VITALS: BP 143/97
[2020-07-11 00:32] VITALS: BP 169/103
[2020-07-11 04:30] VITALS: BP 139/89
[2020-07-11 05:57] LABS: ALBUMIN 1.2 g/dL (3.4-5.0); ANION GAP 18.6 mmol/L (8-16); BILIRUBIN - TOTAL 0.54 mg/dL (0.2-1.3); CALCIUM 7.9 mg/dL (8.5-10.1); CARBON DIOXIDE 20.4 mmol/L (21.0-32.0); CREATININE - SERUM 8.9 mg/dL (0.6-1.3); MAGNESIUM - SERUM 2.5 mg/dL (1.8-2.4); PHOSPHOROUS 6.7 mg/dL (2.5-4.9); PROTEIN - SERUM 5.5 g/dL (6.4-8.2)
[2020-07-11 08:46] VITALS: BP 182/120
--- NOTE | 2020-07-11 13:04 | NUR ---
Nutrition Follow-up: TPN @ 60 mL/hr + lipids q [address]GT in [address]. Noted possible exlap today. Wt: 213# (07/08) Labs noted: Na 134, K+ 4.0, Glu 230, Ca 7.9, PO4 6.7, Mg 2.5, Alb 1.2 Meds noted: Humalog, Calcitriol, Protonix, Zofran, electrolyte protocol -Labs reviewed; no changes made to TPN. -Monitor wt; noted daily wts ordered. -RD following.
[2020-07-11 17:18] VITALS: BP 120/69
--- NOTE | 2020-07-11 20:30 | NUR ---
PT IN BED, EYES CLOSED, RESP EVEN AND UNLABORED, CL IN REACH, SR UP X 2, FAMILY AT BEDSIDE.
[2020-07-12] VITALS (19 sets, daily range): BP systolic 79–145; BP diastolic 42–99
--- NOTE | 2020-07-12 03:55 | NUR ---
I have reviewed this patient and I concur with the Shift Assessment completed by the Licensed Practical Nurse today this shift.
[2020-07-12 04:53] LABS: ALBUMIN 1.1 g/dL (3.4-5.0); ANION GAP 12.1 mmol/L (8-16); BILIRUBIN - TOTAL 0.8 mg/dL (0.2-1.3); CALCIUM 7.5 mg/dL (8.5-10.1); CARBON DIOXIDE 25.2 mmol/L (21.0-32.0); CREATININE - SERUM 6.7 mg/dL (0.6-1.3); MAGNESIUM - SERUM 2.2 mg/dL (1.8-2.4); PHOSPHOROUS 5.6 mg/dL (2.5-4.9); POTASSIUM - SERUM 4.3 mmol/L (3.5-5.1); PROTEIN - SERUM 4.9 g/dL (6.4-8.2)
--- NOTE | 2020-07-12 05:25 | NUR ---
RAPID RESPONSE CALLED AT THIS TIME.
--- NOTE | 2020-07-12 05:55 | NUR ---
0525 RAPID RESPONSE CALLED FOR PATIENT WITH PERFUSE VOMITING AROUND HIS NGT. UPON ARRIVAL AT 0528 PATIENT AWAKE AND ALERT, NO LONGER VOMITING, VITAL SIGNS STABLE. LUNG SOUNDS WITH DIMINISHED LOWER LOBES. GROSS ACITES PRESENT. NGT PLACEMENT CONFIRMED VIA AUSCULTATION, FLUSHED WITH 20ML H2O AND PLACED ON CONTINUOUS SUCTION, WAS ABLE TO EXTRACT AN ADDITIONAL 150 ML GREEN STOMACH CONTENTS OUT. SUNDEEP HALL PAGED AND CALLED BACK - ORDERS RECIEVED FOR CXR, 500 MG VANC IVPB ONCE, AND A RANDOM VANC FOR TOMORROW 07/13. PER SUNDEEP HALL, OKAY TO STAY IN ROOM STABLE AT THIS TIME, ISAIAS THOMSON NOTIFIED TO WATCH CLOSELY AND CALL FOR ASSISTANCE IF NEEDED.
--- NOTE | 2020-07-12 07:00 | NUR ---
RECEIVED REPORT. ASSUMED CARE OF PATIENT. PATIENT WITH FEMALE VISITOR AT BEDSIDE. PATIENT AROUSES TO VOICE AND ANSWERS QUESTIONS APPROPRIATELY. ABD NOTED TO BE DISTENDED, ABD APPEARS EDEMATOUS AND SCATTERED BRUISING. IV FLUIDS INFUSING ORDERED. CALL LIGHT WITHIN REACH. BEDSIDE SHIFT REPORT COMPLETE. WHITE BOARD UPDATED.
--- NOTE | 2020-07-12 08:31 | NUR ---
Nutrition follow-up: Chart reviewed Labs reviewed; Na: 134. Pt s/p rapid response for vomiting around NGT. Will continue with current TPN formula of D20W,5%AA @ 60 ml/hr RDN following.
[2020-07-12 09:19] LABS: RBC 2.87 10x6/uL (4.20-6.10); WBC 22.2 10x3/uL (4.8-10.8)
[2020-07-12 09:22] LABS: HEMATOCRIT 23.8 % (42.0-54.0); HEMOGLOBIN 7.3 g/dL (13.5-17.5); MCH 25.4 pg (26.0-34.0); MCHC 30.7 g/dL (31.0-37.0); MCV 82.9 fL (80.0-100.0); MEAN PLATELET VOLUME 10.6 fL (7.4-10.4); PLATELET COUNT 309 10x3/uL (130-400); RDW 16.8 % (11.5-14.5)
--- NOTE | 2020-07-12 09:24 | NUR ---
NOTIFIED JOSE MELLO FOR [facility] OF DECREASING H/H. AWAITING NEW ORDERS.
[2020-07-12 09:45] LABS: ANISOCYTOSIS OCC; LYMPHOCYTES 10 % (15-50); MONOCYTES 8 % (2-11); NEUTROPHILS 80 % (40-80); PLATELET ESTIMATE NORMAL
[2020-07-12 09:46] LABS: ELLIPTOCYTES OCC; TEAR DROP CELLS OCC
--- NOTE | 2020-07-12 11:57 | NUR ---
FSBS 253. 6 UNITS HUMALOG ADMINISTERED PER SLIDING SCALE.
--- NOTE | 2020-07-12 12:39 | NUR ---
PRBCs INITIATED AT THIS TIME. PATIENT TOLERATING BLOOD TRANSFUSION WELL. PATIENT RESTING WITH EYES CLOSED. NO FAMILY AT BEDSIDE AT THIS TIME. NO ORDER RECEIVED AT THIS TIME TO TRANSFER TO ICU. VSS.
--- NOTE | 2020-07-12 13:37 | NUR ---
AT BEDSIDE FOR CONSULTATION. NEW ORDERS FOR ABGs RECEIVED.
--- NOTE | 2020-07-12 15:35 | NUR ---
PRBC TRANSFUSION COMPLETE AT THIS TIME. PATIENT TOLERATED TRANSFUSION WELL.
--- NOTE | 2020-07-12 16:19 | NUR ---
REPORT CALLED TO ICU. PATIENT TO TRANSFER SHORTLY TO ROOM 2318
--- NOTE | 2020-07-12 16:32 | NUR ---
PATIENT TRANSFER ON HOLD AT THIS. ICU WILL CALL WHEN READY FOR PATIENT TO TRANSFER. PATIENT RESTING WITH EYES CLOSED, EASILY AROUSED. NO DISTRESS.
--- NOTE | 2020-07-12 17:18 | NUR ---
DR. HUBER AT BEDSIDE, ASSISTED WITH CALLING PATIENT MOTHER AND GIRLFRIEND. CALLED ICU FOR TRANSFER OF PATIENT, WAITING FOR CHARGE ICU NURSE.
--- NOTE | 2020-07-12 17:19 | NUR ---
FSBS 254. 6 UNITS HUMALOG ADMINISTERED PER SLIDING SCALE.
--- NOTE | 2020-07-12 18:22 | NUR ---
PATIENT TRANSFERRED TO ICU #2108 AT THIS TIME.
--- NOTE | 2020-07-12 18:46 | NUR ---
Arrive to unit around [address] on ICU monitor. Trialysis cath to left upper chest, tripple lumen CVL to right chest. Dr. mccann at bedside for intubation. Order received. 8.0 ETT inserted. Right radial marcia inserted by Dr. mccann. Wrist restraints applied per order. Dr. Haro aware of patient arrival. Will continue to monitor.
[2020-07-12 20:01] LABS: INR 1.5 (0.85-1.17)
[2020-07-13] VITALS (92 sets, daily range): BP systolic 82–137; BP diastolic 20–86
--- NOTE | 2020-07-13 02:33 | NUR ---
1944- PATIENT SBP 80'S WITH MAP OF 70'S. PLACED PATIENT IN [place] POSITION. ABG POST INTUBATED OBTAINED. FIO2 DECREASED TO 60%. PATIENT COUGHING, AGGITATED- PROPOFOL INCREASED PER ORDERS.
--- NOTE | 2020-07-13 03:15 | NUR ---
2044-SPOKE WITH DR. HERRING. NEW ORDERS REC'D. OGT PLACED. PLACEMENT CHECKED VIA ASCULTATION AND GASTRIC CONTENT. PLACED ON LIS WITH IMMEDIATE 50 ML OUT.
[2020-07-13 07:42] LABS: ANION GAP 18.2 mmol/L (8-16); BILIRUBIN - TOTAL 0.81 mg/dL (0.2-1.3); CALCIUM 8.2 mg/dL (8.5-10.1); CREATININE - SERUM 8.3 mg/dL (0.6-1.3); MAGNESIUM - SERUM 2.7 mg/dL (1.8-2.4); POTASSIUM - SERUM 4.2 mmol/L (3.5-5.1); PROTEIN - SERUM 5.2 g/dL (6.4-8.2); VANCOMYCIN - RANDOM 7.6 ug/mL (10.0-20.0)
[2020-07-13 07:43] LABS: PHOSPHOROUS 8.8 mg/dL (2.5-4.9)
--- NOTE | 2020-07-13 08:12 | NUR ---
Nutrition follow-up: Pt now in ICU Labs reviewed Na low; glucose high; there is no PO4, Mg in TPN TPN formual adjusted; increased Na and insulin RDN following.
[2020-07-13 09:42] LABS: EOSINOPHILS 1.4 % (0-7); HEMATOCRIT 24.8 % (42.0-54.0); HEMOGLOBIN 7.7 g/dL (13.5-17.5); MCH 26.3 pg (26.0-34.0); MCV 84.6 fL (80.0-100.0); MEAN PLATELET VOLUME 10.9 fL (7.4-10.4); MONOCYTES 5.4 % (2-11); PLATELET COUNT 301 10x3/uL (130-400); RBC 2.93 10x6/uL (4.20-6.10); RDW 16.9 % (11.5-14.5); WBC 33.5 10x3/uL (4.8-10.8)
--- NOTE | 2020-07-13 11:21 | NUR ---
PT INC OF STOOL. CLEANED AND LINENS CHANGED.
--- NOTE | 2020-07-13 15:55 | NUR ---
3 LAPS PACKED IN PATIENTS ABDOMEN.
--- NOTE | 2020-07-13 16:44 | NUR ---
1613-REC'D FROM OR. VENT SETTING BY RT. 50% FI02 PEEP 5 TV 500, A/C 12. VASOPRESSIN 0.04.U/M, LEVOPHED AT 30MCG/MIN. ART LINED ZEROED. VSS. AFEBRILE. ALL MONITORING EQUIPMENT ATTACHED AND ALARMS SET. WOUND VAC 125 SUCTION WORKING WITH OUT PROBLEMS.
--- NOTE | 2020-07-13 17:39 | NUR ---
NS BOLUS INFUSING. BP RESPONDING WELL, LEVOPHED TITRATING DOWN. 1ST UPRBC STARTED.
--- NOTE | 2020-07-13 18:21 | OP ---
PATIENT NAME: GINGER AHUJA MEDICAL RECORD: [id number] :74 LOCATION:.[facility] D.2308 ADMISSION DATE:06/29/20 SURGEON: VAUGHN HUBER MD DATE OF OPERATION: 07/12/2020 PREOPERATIVE DIAGNOSES: 1. Ventilatory failure, requiring mechanical ventilation. 2. Septicemia. 3. Necrotizing pancreatitis. 4. Hemodynamic instability, requiring continuous hemodynamic monitoring. POSTOPERATIVE DIAGNOSES: 1. Ventilatory failure, requiring mechanical ventilation. 2. Septicemia. 3. Necrotizing pancreatitis. 4. Hemodynamic instability, requiring continuous hemodynamic monitoring. PROCEDURE: 1. Endotracheal intubation, atraumatic, with 8.0 VAP tube. 2. Placement of right radial artery arterial line for continuous hemodynamic monitoring. SURGEON: Vaughn Huber MD CLOSING MANAGER: None. BLOOD LOSS: Minimal. ANESTHESIA: IV paralytic as well as IV sedation for placement of the endotracheal tube. OPERATIVE COURSE: The patient was conveyed to the intensive care unit. I explained to the patient the planned procedure tonight in the hopes that we can stabilize him to some degree and then proceed with an operation tomorrow morning. I suctioned out the back of his throat. There were a lot of very thick secretions there. I removed the nasogastric tube. I did all this while we were applying cricoid pressure. Two amps of bicarb were given IV. We then proceeded with 10 mg of Versed as well as the vecuronium. I began ventilating the patient. Utilizing a Verma 2 blade and direct laryngoscopy, I was able to visualize the cords and I was able to atraumatically endotracheally intubate the patient on the first try. We inflated the balloon. We attached it to the end-tidal CO2 monitor and there was good color change. The endotracheal tube was fixated at 25 cm. Attention was then turned to placement of the arterial line. An Pa test demonstrated adequate collateral flow via the right ulnar artery. The right wrist was supinated. The volar surface of the right wrist was sterilely prepped and draped. A local anesthetic was used to infiltrate the skin and subcutaneous tissues overlying the right radial artery. The radial artery was then percutaneously accessed in a retrograde fashion easily. A guidewire passed easily. A small skin justen was accomplished. I advanced a long single-lumen OPERATIVE REPORT [id number] LEIGHAGINGER catheter. This was advanced over the wire. The wire was removed. There was pulsatile blood coming out through the end of the catheter. The catheter was then connected to a flushed transducer tubing. The arterial line was then sutured in place times 3. There was an excellent waveform on the monitor. A sterile dressing was applied. NTS:[id number] Voice Confirmation ID: [id number] DOCUMENT ID: [id number] VAUGHN HUBER MD at 1821 CC: [id number] DICTATION DATE: 07/12/202027 CLEAN ROOM TECHNICIAN: 07/12/202132 ADM IN [facility] [address] [id number]
--- NOTE | 2020-07-13 20:55 | NUR ---
SECOND PRBC STARTED.
[2020-07-14] VITALS (95 sets, daily range): BP systolic 71–150; BP diastolic 47–93
--- NOTE | 2020-07-14 03:00 | NUR ---
PATIENT WAKING UP. FOLLOWING COMMANDS. BREATHING 10-15 BREATHS OVER THE VENT AND SHAKING HEAD. STARTED SEDATION BACK.
[2020-07-14 06:39] LABS: INR 1.44 (0.85-1.17); PROTIME 17.4 SECONDS (11.6-15.0)
[2020-07-14 07:02] LABS: ALBUMIN 0.8 g/dL (3.4-5.0); BILIRUBIN - TOTAL 1.18 mg/dL (0.2-1.3); CALCIUM 7.9 mg/dL (8.5-10.1); CARBON DIOXIDE 17.6 mmol/L (21.0-32.0); CREATININE - SERUM 8.4 mg/dL (0.6-1.3); PROTEIN - SERUM 4.7 g/dL (6.4-8.2)
[2020-07-14 07:17] LABS: MAGNESIUM - SERUM 2.8 mg/dL (1.8-2.4)
[2020-07-14 07:28] LABS: C-REACTIVE PROTEIN 39.8 mg/dL (0.0-0.9)
[2020-07-14 07:35] LABS: ANION GAP 20.9 mmol/L (8-16); POTASSIUM - SERUM 5.5 mmol/L (3.5-5.1)
[2020-07-14 07:36] LABS: PHOSPHOROUS 11.1 mg/dL (2.5-4.9)
[2020-07-14 07:43] LABS: WBC 49.5 10x3/uL (4.8-10.8)
[2020-07-14 07:44] LABS: HEMATOCRIT 32.4 % (42.0-54.0); HEMOGLOBIN 10.5 g/dL (13.5-17.5); MCH 28.4 pg (26.0-34.0); MCHC 32.4 g/dL (31.0-37.0); MCV 87.6 fL (80.0-100.0); MEAN PLATELET VOLUME 11.4 fL (7.4-10.4); PLATELET COUNT 254 10x3/uL (130-400); RDW 16.7 % (11.5-14.5)
--- NOTE | 2020-07-14 09:08 | NUR ---
LATE ENTRY: 729 CRITICAL PHOS, BUN, CREATININE REPORTED TO DR. BRUNO.
[2020-07-14 09:38] LABS: ANION GAP 19.6 mmol/L (8-16); BILIRUBIN - TOTAL 1.51 mg/dL (0.2-1.3); CALCIUM 8.1 mg/dL (8.5-10.1); CARBON DIOXIDE 18.7 mmol/L (21.0-32.0); CREATININE - SERUM 8.6 mg/dL (0.6-1.3); POTASSIUM - SERUM 5.3 mmol/L (3.5-5.1)
[2020-07-14 09:47] LABS: ALBUMIN 1.4 g/dL (3.4-5.0)
--- NOTE | 2020-07-14 09:57 | NUR ---
CRITICALLY HIGH BUN NOT CALLED TO DR. BRUNO AGAIN, HE IS ALREADY AWARE.
--- NOTE | 2020-07-14 10:23 | NUR ---
Nutrition follow-up: Pt now in ICU; intubated, sedated with propofol TPN continues @ 60 ml/hr Labs reviewed; K now high; TPN adjusted Wt: 240# Will discontinue lipids 2/2 propofol in use RDN following.
[2020-07-14 10:54] LABS: ANISOCYTOSIS OCC; LYMPHOCYTES 6 % (15-50); MONOCYTES 12 % (2-11); NEUTROPHILS 53 % (40-80); PLATELET ESTIMATE NORMAL
--- NOTE | 2020-07-14 14:48 | OP ---
PATIENT NAME: GINGER AHUJA MEDICAL RECORD: [id number] :74 LOCATION:.[facility] D.2308 ADMISSION DATE:06/29/20 SURGEON: ISIAH HUBER MD DATE OF OPERATION: 07/13/2020 PREOPERATIVE DIAGNOSES: 1. Infected pancreatic necrosis. 2. Septicemia. 3. Acute renal failure requiring hemodialysis. POSTOPERATIVE DIAGNOSIS: 1. Infected pancreatic necrosis. 2. Septicemia. 3. Acute renal failure requiring hemodialysis. 4. Intra-abdominal adhesions. PROCEDURE: Pancreatic necrosectomy. SURGEON: Isiah Huber MD SALVAGE DETERMINER: None. BLOOD LOSS: Please see the anesthesia sheet. COMPLICATIONS: None. The risks, possible complications and alternatives to the procedure were explained to the patient as well as to his family. This included the very high risk of mortality. OPERATIVE FINDINGS: Included 2.5 liters of black fluid that was loculated that had an odor. Additionally, extensive saponification and pancreatic necrosis. Intraabdominal adhesions were noted and these were all taken down through finger dissection. OPERATIVE COURSE: The patient was conveyed to the operating room electively on 07/13/2020. General anesthesia was induced by anesthesia staff. The abdomen was sterilely prepped and draped. Upper midline incision was accomplished. Sharp dissection was carried down through the skin and subcutaneous tissue and then I incised the linea alba. The peritoneal cavity was entered sharply. Some preperitoneal fat was removed utilizing the Super Jaw EnSeal device. The falciform ligament was removed partially utilizing the Super Jaw EnSeal device. I began to mobilize the very thick indurated omentum which had a lot of saponification present. I explored the abdomen with my hand and disrupted some of the loculated fluid collections which were then aspirated. I was able to mobilize the entire omentum. Portions of the omentum I removed by sealing and dividing them with the Super Jaw EnSeal device. I ran the entire small bowel. There were some adhesions that were present that may have caused kinking of the bowel and a high-grade bowel obstruction. I took down these adhesions through finger dissection. Some additional omentum was removed utilizing the Super Jaw EnSeal device. I ran my hand along both white lines of Toldt, mobilizing them and releasing some retroperitoneal fluid. OPERATIVE REPORT [id number] GINGER AHUJA Cultures were obtained as well as Gram stain. I then began to approach the pancreas. I entered the lesser sac. This was quite adherent. I was able to dissect down and identified some necrotic material, some of it was cheesy such as is seen with saponification, others appeared to be a pancreatic tissue that was necrotic. It appeared that all of the necrosis was pointing out through the transverse colonic mesentery. So I did some careful dissection in the mesentery and was able to remove more saponified material as well as more necrotic pancreas. There was no significant bleeding. I then took the power business trainer and irrigated the pancreatic bed. I then placed 3 laparotomy pads; two of them just inferior to the root of the transverse colonic mesentery and then one in the pancreatic bed. We took the large ABThera wound VAC and cut it to size and placed this in the abdominal cavity. I then placed the two of the football type sponges on top of the ABThera wound VAC and then the cellophane type dressings. These were scored and the wound VAC disc was applied to suction, which held a good "raisin" indicating a good suction without leakage. The patient was then conveyed back to the intensive care unit being mechanically ventilated in critical condition. TRANSINT:[id number] Voice Confirmation ID: [id number] DOCUMENT ID: [id number] ISIAH HUBER MD at 1448 CC: [id number] DICTATION DATE: 07/13/201999 CARPENTER'S ASSISTANT: 07/14/20 0425 ADM IN [address] [place] [address]
[2020-07-14 14:57] LABS: PATH REVIEW PERIPHERAL SMEAR REVIEWED
[2020-07-15] VITALS (62 sets, daily range): BP systolic 79–145; BP diastolic 60–99
[2020-07-15 07:30] LABS: HEMATOCRIT 26.2 % (42.0-54.0); HEMOGLOBIN 8.5 g/dL (13.5-17.5); MCHC 32.4 g/dL (31.0-37.0); MCV 86.2 fL (80.0-100.0); MEAN PLATELET VOLUME 11.7 fL (7.4-10.4); PLATELET COUNT 157 10x3/uL (130-400); RBC 3.04 10x6/uL (4.20-6.10); RDW 17.4 % (11.5-14.5); WBC 45.1 10x3/uL (4.8-10.8)
[2020-07-15 07:31] LABS: ALBUMIN 1.1 g/dL (3.4-5.0); ALKALINE PHOSPHATASE 242 U/L (30-120); AMYLASE - SERUM 47 U/L (25-115); BILIRUBIN - TOTAL 1.98 mg/dL (0.2-1.3); CALCIUM 7.9 mg/dL (8.5-10.1); CARBON DIOXIDE 17.2 mmol/L (21.0-32.0); CHLORIDE - SERUM 104 mmol/L (98-107); CREATININE - SERUM 7.4 mg/dL (0.6-1.3); GLUCOSE 329 mg/dL (74-106); LIPASE 191 U/L (73-393); MAGNESIUM - SERUM 2.6 mg/dL (1.8-2.4); POTASSIUM - SERUM 4.8 mmol/L (3.5-5.1); PRO BNP 1258 pg/mL (0-125); PROTEIN - SERUM 4.5 g/dL (6.4-8.2); SODIUM 137 mmol/L (136-145); TROPONIN-I < 0.017 ng/mL (0.000-0.060); eGFR NON AFRICAN AMERICAN 8 mL/min (90-120)
[2020-07-15 07:53] LABS: ALT (SGPT) 31 U/L (10-68); CALC OSMOLALITY 321 mosm/kg (275-300); PHOSPHOROUS 8.2 mg/dL (2.5-4.9)
[2020-07-15 07:55] LABS: UREA NITROGEN 111 mg/dL (7-18)
--- NOTE | 2020-07-15 10:27 | NUR ---
Nutrition follow-up: Intubated, sedated Dialysis at this time Chart reviewed Labs reviewed Will continue current TPN @ 60 ml/hr RDN following.
[2020-07-15 12:27] LABS: ANISOCYTOSIS 1+; CRENATED CELLS 1+; EOSINOPHILS 1 % (0-7); LYMPHOCYTES 12 % (15-50); MONOCYTES 10 % (2-11); NEUTROPHILS 51 % (40-80); PLATELET ESTIMATE NORMAL; POIKILOCYTOSIS 1+; POLYCHROMASIA OCC; SMUDGE CELLS OCC
[2020-07-16] VITALS (70 sets, daily range): BP systolic 81–151; BP diastolic 51–92
[2020-07-16 05:35] LABS: PHOSPHOROUS 6.4 mg/dL (2.5-4.9)
[2020-07-16 05:37] LABS: CREATININE - SERUM 5.3 mg/dL (0.6-1.3)
--- NOTE | 2020-07-16 07:00 | NUR ---
AM ROUNDS COMPLETED. INTRODUCED MYSELF TO PT PRIMARY RN FOR TODAYS SHIFT. PT IS ON VENT AND SEDATION AND DID NOT OPEN EYES OR AROUSE TO STIMULI. BEDSIDE SHIFT REPORT COMPLETED AND PTS MIDLINE ABDOMEN WOUND VAC IS COMPLETELY FULL. TEACHING PROVIDED TO NIGHTSHIFT NURSE AND CHANGED OUT CANISTER. IMMEDIATE RETURN OF 300CC DARK BLOODY DRAINAGE CAME OUT. PT HAS OGT TO LIS WITH CLEAR SECRETIONS COMING OUT. PT IS VERY SWOLLEN ALL OVER AND HAS +4 PITTING EDEMA IN BILAT FEET. ELEVATED TO HELP REDUCE SWELLING. ADVILA DRAINING BARELY ANYTHING TO L.SIDE OF BED VERY DARK CONCENTRATED URINE. PT IS RECIEVING DAILY DIALYSIS VIA R.CHEST HEMESPLIT AND LOW OUTPUT IS EXPECTED PER RENAL. SEVERE PETECHIA NOTED ALL AROUND ABDOMEN WOUND VAC AND ABD IS DISTENDED. NO BOWEL SOUNDS NOTED. LUNGS IN BILAT UPPER LOBES ARE CTA HOWEVER LOWER ARE SEVERELY DIMINISHED. BILAT FEET ARE WARM HOWEVER TOES ARE VERY COLD AND CAPILARY REFILL >8SECS. WILL MAKE SURE PRIMARY IS AWARE PT HAS BEEN MAXED OUT ON PRESSORS PREVIOUSLY. WILL REVIEW CHART AND LABS AND BEGIN PLAN OF CARE FOR THIS PT.
--- NOTE | 2020-07-16 08:15 | NUR ---
PAGED TO INQUIRE ABOUT BLOOD TRANSFUSION PRIOR TO SURGERY HGB IS 7.5. STAT LABS ORDERED FOR SURGERY NONE WERE IN. TALKED WITH RENAL PHYSICIAN AND WILL MAKE SURE VANC IS BEING DOSED BY PHARMACY. ORDERED 2 UNITS OF PRBCS. WILL MAKE SURE THEY ARE TRANSFUSED.
[2020-07-16 08:50] LABS: HEMATOCRIT 24.5 % (42.0-54.0); MCH 27.9 pg (26.0-34.0); MCHC 32.7 g/dL (31.0-37.0); MCV 85.4 fL (80.0-100.0); MEAN PLATELET VOLUME 11.4 fL (7.4-10.4); PLATELET COUNT 120 10x3/uL (130-400); RBC 2.87 10x6/uL (4.20-6.10); RDW 17.9 % (11.5-14.5); WBC 34.1 10x3/uL (4.8-10.8)
[2020-07-16 09:00] LABS: ANION GAP 18.3 mmol/L (8-16); CALCIUM 7.5 mg/dL (8.5-10.1); CARBON DIOXIDE 18.7 mmol/L (21.0-32.0); CREATININE - SERUM 5.4 mg/dL (0.6-1.3)
[2020-07-16 09:21] LABS: TROPONIN-I 0.077 ng/mL (0.000-0.060)
--- NOTE | 2020-07-16 10:39 | NUR ---
PT RECIEVING BEDSIDE DIALYSIS AND IS SUPPOSED TO GET 2 UNITS OF PRBCS HOWEVER CALLED LAB 3 TIMES AND STILL HAVENT OBTAINED TUBES FOR TYPE AND CROSS. WENT TO LAB AND OBTAINED THEM MYSELF AND ORDERED STAT RESULTS SO WE CAN TRY AND GIVE BLOOD ON DIALYSIS IF HE CAN TOLERATE. HAD TO INCREASE LEVOPHED R/T DROP IN MAP. CURRENTLY INFUSING AT 24MCG/KG/MIN TO MAINTAIN MAP >60.
[2020-07-16 11:02] LABS: CRENATED CELLS 1+; LYMPHOCYTES 9 % (15-50); MONOCYTES 1 % (2-11); NEUTROPHILS 68 % (40-80); PLATELET ESTIMATE DECREASED; POLYCHROMASIA 1+
[2020-07-16 11:03] LABS: POIKILOCYTOSIS OCC
--- NOTE | 2020-07-16 11:06 | NUR ---
Nutrition follow-up: Pt remains intubated, sedated pt receiving dialysis daily TPN continues @ 60 ml/hr Labs reviewed Will continue current TPN formula RDN following.
--- NOTE | 2020-07-16 11:45 | NUR ---
DIALYSIS COMPLETED. BLOOD WAS NOT AVAILABLE SO WILL HAVE TO GIVE OFF DIALYSIS. WILL GO GET BLOOD NOW. PT STILL AWAITING SURGERY.
--- NOTE | 2020-07-16 12:06 | NUR ---
INITIATED PTS FIRST UNIT OF PRBCS VIA L.CHEST CVL. PTS BP STILL HYPOTENSIVE HOWEVER MAP IS >60. WILL CTM.
--- NOTE | 2020-07-16 13:50 | NUR ---
NO BLOOD REACTION NOTED AFTER FIRST UNIT OF PRBCS. SECOND UNIT INITIATED. BP APPEARS TO BE DOING BETTER NOW THAT DIALYSIS IS COMPLETE AND 2L WAS PULLED OFF. PT STILL AWAITING SURGERY. CONSENTS ARE SIGNED AND IN CHART. NO CURRENT NEEDS AT THIS TIME. WILL CTM.
--- NOTE | 2020-07-16 16:02 | NUR ---
LEFT CHEST CVL DRSG CHANGE COMPLETED PER QWEDNESDAY POLICY. SITE IS CLEAN AND DRY SUTURES ADHERED TO SKIN. BIOPATCH INTACT, DRSG ADHERED TO SKIN. LAST UNIT OF PRBCS COMPLETED. FLUSHED LINE AND SL. NO IMMEIDATE NEEDS IDENTIFIED AT THIS TIME. WILL CTM.
--- NOTE | 2020-07-16 16:28 | NUR ---
OR crew here at bedside ready to transport to OR. Consents are signed and on the chart being sent with patient. All gtts will continue to the OR. Levophed at 12 mcg/kg/min and propofol at 20 mcg/kg/min.
--- NOTE | 2020-07-16 17:36 | NUR ---
1736: 3 LAPS PACKED INTO ABDOMEN BY DR. HUBER
--- NOTE | 2020-07-16 18:21 | NUR ---
PT BACK FROM SURGERY AND BACK ON VENT WITH SAME SETTINGS. PT IS SEDATED AND NOT RESPONDING TO ANY STIMULI. WOUND VAC WAS CHANGED AND NEW DRSG CDI, NO LEAK DETECTED. STILL NO URINE OUTPUT. LEVOPHED DRIP WAS INCREASED PER ANESTHESIA R/T LOW BP DURING CASE. BP CURRENTLY STABLE WITH MAP >60. PT REC'D COMPLETE LINEN CHANGE DONE AND AIR MATTRESS OVERLAY NOW PLACED TO PROTECT SKIN. SPEAKING WITH FAMILY IN PERSON. NO IMMEDIATE NEEDS AT THIS TIME. WILL PASS ON IN SHIFT REPORT.
--- NOTE | 2020-07-16 22:30 | NUR ---
PT FAMILY MEMBER SPOKEN WITH, UPDATED ON STATUS. SECURITY CODE PROVIDED. WILL CONTINUE TO MONITOR.
[2020-07-17] VITALS (90 sets, daily range): BP systolic 75–134; BP diastolic 48–91
[2020-07-17 05:17] LABS: ALBUMIN 0.9 g/dL (3.4-5.0); ANION GAP 16.7 mmol/L (8-16); BILIRUBIN - TOTAL 3.03 mg/dL (0.2-1.3); CALCIUM 7.5 mg/dL (8.5-10.1); CARBON DIOXIDE 21.3 mmol/L (21.0-32.0); CREATININE - SERUM 4.3 mg/dL (0.6-1.3); HEMATOCRIT 31.7 % (42.0-54.0); HEMOGLOBIN 10.7 g/dL (13.5-17.5); LYMPHOCYTES 3.4 % (15-50); MAGNESIUM - SERUM 1.9 mg/dL (1.8-2.4); MCH 30.3 pg (26.0-34.0); MCHC 33.8 g/dL (31.0-37.0); MCV 89.8 fL (80.0-100.0); MEAN PLATELET VOLUME 10.7 fL (7.4-10.4); NEUTROPHILS 93.1 % (40-80); PHOSPHOROUS 6.6 mg/dL (2.5-4.9); PLATELET COUNT 113 10x3/uL (130-400); PROTEIN - SERUM 4.5 g/dL (6.4-8.2); RBC 3.53 10x6/uL (4.20-6.10); RDW 18.6 % (11.5-14.5); VANCOMYCIN - RANDOM 15.9 ug/mL (10.0-20.0); WBC 38.6 10x3/uL (4.8-10.8)
--- NOTE | 2020-07-17 10:31 | NUR ---
Nutrition follow-up: s/p surgery 07/16 TPN continues @ 60 ml/hr Labs reviewed Will continue current TPN RDN following.
--- NOTE | 2020-07-17 18:34 | OP ---
PATIENT NAME: GINGER AHUJA MEDICAL RECORD: [id number] :74 LOCATION:[facility] D.2308 ADMISSION DATE:06/29/20 SURGEON: ISIAH HUBER MD DATE OF OPERATION: 07/16/2020 PREOPERATIVE DIAGNOSES: 1. Infected pancreatic necrosis. 2. Septicemia. 3. Acute renal failure, requiring dialysis. POSTOPERATIVE DIAGNOSES: 1. Infected pancreatic necrosis. 2. Septicemia. 3. Acute renal failure, requiring dialysis. PROCEDURE: Pancreatic re-debridement. SURGEON: Isiah Huber MD NEEDLE SETTER: None. BLOOD LOSS: Less than 100 cc. ANESTHESIA: General. COMPLICATIONS: None. The risks, possible complications and alternatives to the procedure were explained to the patient's family. They elected to proceed. OPERATIVE COURSE: The patient was conveyed to the operating room electively on 07/16/2020. General anesthesia was induced by the anesthesia staff. The patient ABThera wound VAC was removed. Three laparotomy pads, which had been placed there during the last case as a packing in the pancreatic bed, were removed in their entireties. I then went about opening up a little bit more of the lesser sac. Also debriding the pancreatic material through the transverse mesocolon. We did not encounter any significant bleeding. The debridement was carried out with a Panamanian forceps as well as with a ring forceps. There was a good bit of black fluid within the abdomen, which was aspirated. I saw no feculent material, however. We irrigated with normal saline and then with hydrogen peroxide. I then repacked with 3 laparotomy pads, two inferior to the transverse colon mesentery and one in the pancreatic bed. We then cut an ABThera wound VAC to size. The sponge type dressings were placed over the ABThera wound VAC. The cellophane-type dressings were applied over this and the wound VAC was attached to suction and held a good "raisin" indicating a good suction without a significant leak. The patient was then conveyed back to the intensive care unit in critical condition. I will plan for his next return to the operating room to take place in 2 days. The debridements will continue until there is no further ongoing pancreatic necrosis. TRANSINT:[id number] Voice Confirmation ID: [id number] DOCUMENT ID: [id number] OPERATIVE REPORT [id number] GINGER AHUJA ROBERT MD at 1834 CC: [id number] DICTATION DATE: 07/16/202023 DIRECTOR LIFE SALES: 07/17/20 0810 ADM IN [facility] [address] [id number]
--- NOTE | 2020-07-17 22:06 | MORECARE ---
CASE MANAGEMENT DISCHARGE SUMMARY PATIENT: GINGER AHUJA UNIT: [id number] ADM DATE: 06/29/20 AGE: 50 : 74 SEX: M ROOM/BED: D.2308 AUTHOR: JUAN JOSEPH PHYSICIAN: REFERRING PHYSICIAN: JAMI CALIX MD DATE OF SERVICE: 07/17/20 Discharge Plan Patient Name: GINGER AHUJA Facility: [facility]:[place] : 1970 Planned Disposition: Anticipated Discharge Date: Discharge Date: Expected LOS: Initial Reviewer: [email or web address] Initial Review Date: 06/29/2020 Generated: 07/17/20 11:05 pm Comments DCP- Discharge Planning Updated by [email or web address]: Rachel Ballard on 07/17/20 8:[address] CM received a call from [facility] asking for notice when patient getting closer to discharge so they are prepared . CM will continue to follow and assist as needed with discharge planning / needs. DCP- Discharge Planning Updated by [email or web address]: Britt Patricio on 07/03/20 3:[address] Per Lucía Reyes healthcare sales representative, is working on HD chair/time/place. Coverage Notice Reviewer: [email or web address] Irena Robledo Notice Issued Date-Time: 07/08/2020 14:30 Notice Type: Patient Choice Letter Notice Delivered To: Patient Relationship to Patient: Self Golf Course Architect Name: Delivery Method: HAND - Hand Delivered Lindsey Days: Prior Verbal Notification: Recipient Understood Notice: Yes Recipient Signature: Yes Med Rec Note Co-signed by Attending: Coverage Notice Comment: [facility] Last DP export: 07/08/20 1:41 p Patient Name: GINGER AHUJA Page [id number] at 2206 All edits/amendments must be made on the electronic document DICTATION DATE: 07/17/202204 HOSE TURNER: SAVANAH 07/17/202204 RPT#: [id number] DC DATE: STATUS: ADM IN [facility] [address] [place] [address] END OF REPORT
[2020-07-18] VITALS (62 sets, daily range): BP systolic 80–167; BP diastolic 8–97
[2020-07-18 04:49] LABS: HEMATOCRIT 31.3 % (42.0-54.0); HEMOGLOBIN 10.2 g/dL (13.5-17.5); MCH 28.9 pg (26.0-34.0); MCHC 32.6 g/dL (31.0-37.0); MCV 88.7 fL (80.0-100.0); PLATELET COUNT 86 10x3/uL (130-400); RBC 3.53 10x6/uL (4.20-6.10); RDW 18.2 % (11.5-14.5); WBC 33.1 10x3/uL (4.8-10.8)
[2020-07-18 04:51] LABS: ALBUMIN 0.8 g/dL (3.4-5.0); ANION GAP 17.9 mmol/L (8-16); BILIRUBIN - TOTAL 3.49 mg/dL (0.2-1.3); CARBON DIOXIDE 20.1 mmol/L (21.0-32.0); CREATININE - SERUM 3.8 mg/dL (0.6-1.3); MAGNESIUM - SERUM 1.8 mg/dL (1.8-2.4); PROTEIN - SERUM 4.3 g/dL (6.4-8.2); VANCOMYCIN - RANDOM 17.7 ug/mL (10.0-20.0)
[2020-07-18 04:53] LABS: CALCIUM 6.9 mg/dL (8.5-10.1)
[2020-07-18 05:12] LABS: LYMPHOCYTES 9 % (15-50); MONOCYTES 4 % (2-11); NEUTROPHILS 64 % (40-80); PLATELET ESTIMATE DECREASED
--- NOTE | 2020-07-18 07:30 | NUR ---
resting comfortable, oral care provided and secreations suctioned, no acute distress noted, will monitor
--- NOTE | 2020-07-18 09:55 | NUR ---
pt started on dialysis at this time
--- NOTE | 2020-07-18 10:35 | NUR ---
mercedez CHURCHILL'D AT THIS TIME PER DR VÁZQUEZ
--- NOTE | 2020-07-18 10:40 | NUR ---
Dr. Horton here seeing patient
--- NOTE | 2020-07-18 10:45 | NUR ---
pt taken off dialysis at this time
--- NOTE | 2020-07-18 11:20 | NUR ---
BP 155/75, levophed decreased to 21mcg/min 1130: BP 154/77, LEVOPHED DECREASED TO 20MCG/MIN 1135: BP 144/74, LEVOPHED DECREASED TO 19MCG/MIN 1140: BP 146/79, LEVOPHED DECREASED TO 18MCG/MIN 1145: BP 152/78, LEVOPHED DECREASED TO 17MCG/MIN 1200: BP 142/67, LEVOPHED DECREASED TO 16MCG/MIN 1205: BP 134/77, LEVOPHED DECREASED TO 15MCG/MIN 1215: BP 144/59, LEVOPHED DECREASED TO 14MCG/MIN 1245: BP 134/79, LEVOPHED DECREASED TO 13MCG/MIN 1300: BP 145/87, LEVOPHED DECREASED TO 12MCG/MIN
--- NOTE | 2020-07-18 12:38 | NUR ---
Nutrition Follow-up: Intubated/sedated. TPN @ 60 mL/hr. Diprivan @ 13.7 mL/hr. Noted plans for pancreatic debridement today. Wt: 285.4# (07/18) Labs noted: Na 135, K+ 4.0, Glu 220, Ca 6.9, PO4 6.0, Alb 0.8, Mg 1.8 Meds noted: Diprivan, Humalog, Calcitriol, Protonix, Carafate, electrolyte protocol. -Labs reviewed. Changes made to TPN. -RD Following.
--- NOTE | 2020-07-18 14:00 | NUR ---
FAMILY AT BEDSIDE
--- NOTE | 2020-07-18 14:35 | NUR ---
PT HAS GONE BACK TO SURGERY AT THIS TIME
--- NOTE | 2020-07-18 15:07 | NUR ---
THREE LAP SPONGES IN [place] PRIOR TO PREPPING. STILL IN FROM PREVIOUS SURGERY. LAP SPONGES REMOVED BY DR. HUBER.
--- NOTE | 2020-07-18 15:59 | NUR ---
FIVE LAP SPONGES LEFT IN [place]
--- NOTE | 2020-07-18 16:20 | NUR ---
pt back from surgery, tolerated well, no acute distress noted, positioned for comfort, will monitor
--- NOTE | 2020-07-18 18:19 | NUR ---
oral care provided and pt repositioned, will monitor
[2020-07-19] VITALS (95 sets, daily range): BP systolic 80–178; BP diastolic 51–101
--- NOTE | 2020-07-19 01:46 | NUR ---
MOM CALLED AT 2100, PASSCODE GIVEN. UPDATE GIVEN
[2020-07-19 05:39] LABS: HEMATOCRIT 27.8 % (42.0-54.0); HEMOGLOBIN 9.1 g/dL (13.5-17.5); MCH 28.3 pg (26.0-34.0); MCHC 32.7 g/dL (31.0-37.0); MCV 86.6 fL (80.0-100.0); PLATELET COUNT 91 10x3/uL (130-400); RBC 3.21 10x6/uL (4.20-6.10); RDW 18.5 % (11.5-14.5); WBC 32.5 10x3/uL (4.8-10.8)
[2020-07-19 06:05] LABS: ALBUMIN 0.8 g/dL (3.4-5.0); ALKALINE PHOSPHATASE 391 U/L (30-120); ALT (SGPT) 87 U/L (10-68); BILIRUBIN - TOTAL 5.17 mg/dL (0.2-1.3); CALC OSMOLALITY 288 mosm/kg (275-300); CARBON DIOXIDE 23.2 mmol/L (21.0-32.0); CHLORIDE - SERUM 100 mmol/L (98-107); CKMB 2.4 U/L (0.0-3.6); CREATINE KINASE 56 UL (21-232); CREATININE - SERUM 3.9 mg/dL (0.6-1.3); GLUCOSE 194 mg/dL (74-106); MAGNESIUM - SERUM 2.1 mg/dL (1.8-2.4); PHOSPHOROUS 6.2 mg/dL (2.5-4.9); POTASSIUM - SERUM 3.8 mmol/L (3.5-5.1); PRO BNP 3215 pg/mL (0-125); PROTEIN - SERUM 4.4 g/dL (6.4-8.2); SODIUM 133 mmol/L (136-145); UREA NITROGEN 62 mg/dL (7-18); VANCOMYCIN - RANDOM 22.9 ug/mL (10.0-20.0); eGFR NON AFRICAN AMERICAN 18 mL/min (90-120)
[2020-07-19 06:17] LABS: AMYLASE - SERUM 22 U/L (25-115); LIPASE 37 U/L (73-393)
[2020-07-19 06:18] LABS: TROPONIN-I 0.063 ng/mL (0.000-0.060)
[2020-07-19 07:35] LABS: LYMPHOCYTES 9 % (15-50); MONOCYTES 4 % (2-11); NEUTROPHILS 80 % (40-80); PLATELET ESTIMATE DECREASED
--- NOTE | 2020-07-19 10:15 | NUR ---
0700 REPORT RECIEVED AND CARE ASSUMED OF PATIENT.. SEE FLOW SHEET FOR SHIFT ASSESMENT FINDINGS.. 0900 CHG BATH GIVEN
--- NOTE | 2020-07-19 11:11 | NUR ---
1110 DIALYSIS IN AT BEDSIDE SETTING UP.. PT IS WITHOUT CHANGES
[2020-07-20] VITALS (93 sets, daily range): BP systolic 88–181; BP diastolic 52–98
[2020-07-20 05:55] LABS: BASOPHILS 0.2 % (0-2); EOSINOPHILS 0 % (0-7); HEMATOCRIT 23.6 % (42.0-54.0); HEMOGLOBIN 7.8 g/dL (13.5-17.5); LYMPHOCYTES 2.8 % (15-50); MCH 28.2 pg (26.0-34.0); MCHC 33.1 g/dL (31.0-37.0); MCV 85.2 fL (80.0-100.0); MONOCYTES 0.5 % (2-11); NEUTROPHILS 90.5 % (40-80); PLATELET COUNT 69 10x3/uL (130-400); RBC 2.77 10x6/uL (4.20-6.10); RDW 18.9 % (11.5-14.5); WBC 30.2 10x3/uL (4.8-10.8)
[2020-07-20 05:56] LABS: ANION GAP 16.4 mmol/L (8-16); CALCIUM 7.3 mg/dL (8.5-10.1); CARBON DIOXIDE 20.5 mmol/L (21.0-32.0); MAGNESIUM - SERUM 2.3 mg/dL (1.8-2.4); PHOSPHOROUS 6.3 mg/dL (2.5-4.9); POTASSIUM - SERUM 3.9 mmol/L (3.5-5.1); VANCOMYCIN - RANDOM 19.9 ug/mL (10.0-20.0)
[2020-07-20 09:33] LABS: ALT (SGPT) 79 U/L (10-68)
--- NOTE | 2020-07-20 15:47 | NUR ---
0700 REPORT RECIEVED AND CARE ASSUMED OF PATIENT.. SEE FLOW SHEET FOR SHIFT ASSESMENT FINDINGS.. REMAINS ON THE VENTILATOR ON VASOPRESIN AND LEVOPHED FOR BP CONTROL TPN FOR NUTRITIONAL SUPPORT WOUND VAC IN PLACE.. 1530 I AND O DONE
[2020-07-21] VITALS (96 sets, daily range): BP systolic 79–155; BP diastolic 53–81
[2020-07-21 05:14] LABS: INR 1.49 (0.85-1.17); PROTIME 17.9 SECONDS (11.6-15.0)
[2020-07-21 05:15] LABS: APTT 53.9 SECONDS (22.8-39.4)
[2020-07-21 05:30] LABS: D-DIMER-QUANTITATIVE 6.14 ug/mLFEU (0.20-0.54)
[2020-07-21 05:33] LABS: CALCIUM 7.1 mg/dL (8.5-10.1); CREATININE - SERUM 4.6 mg/dL (0.6-1.3); MAGNESIUM - SERUM 2.1 mg/dL (1.8-2.4); VANCOMYCIN - RANDOM 18.3 ug/mL (10.0-20.0)
[2020-07-21 05:34] LABS: HEMATOCRIT 24.9 % (42.0-54.0); HEMOGLOBIN 8.2 g/dL (13.5-17.5); MCH 28.6 pg (26.0-34.0); MCHC 32.9 g/dL (31.0-37.0); MCV 86.8 fL (80.0-100.0); PLATELET COUNT 89 10x3/uL (130-400); RBC 2.87 10x6/uL (4.20-6.10); RDW 19.8 % (11.5-14.5); WBC 27.5 10x3/uL (4.8-10.8)
[2020-07-21 05:37] LABS: PHOSPHOROUS 4.7 mg/dL (2.5-4.9)
[2020-07-21 06:32] LABS: BURR CELLS 1+; LYMPHOCYTES 7 % (15-50); MONOCYTES 2 % (2-11); NEUTROPHILS 90 % (40-80); PLATELET ESTIMATE DECREASED; SCHISTOCYTES OCC; TARGET CELLS OCC
[2020-07-21 06:33] LABS: ANISOCYTOSIS OCC
--- NOTE | 2020-07-21 06:41 | NUR ---
DR. SONAL BROWNE PER PAGING SERVICE RE CONSULT
--- NOTE | 2020-07-21 06:42 | NUR ---
SPOKE WITH DR. PRUITT. NOTIFIED OF CONSULT
--- NOTE | 2020-07-21 09:08 | NUR ---
PAGED DR WALSH FOR BICARB LEVEL PER DR HERRING REQUEST.
--- NOTE | 2020-07-21 10:50 | NUR ---
Nutrition follow-up: Pt remains intubated; receiving dialysis Scheduled for exp lap today TPN infusing @ 60 ml/hr Jaundiced Labs reviewed Will continue current TPN at this time. RDN following.
--- NOTE | 2020-07-21 13:09 | NUR ---
ABLE TO GET 1L OFF WITH DIALYSIS.
[2020-07-21 13:26] LABS: NORMAL PLASMA / APTT 32.6 SECONDS (22.8-39.4); NORMAL PLASMA / PROTHROMBIN 12.9 SECONDS (11.6-15.0)
--- NOTE | 2020-07-21 14:30 | NUR ---
DR WILSON AWARE OF CONSULT AND PT CONDITION. WILL ROUND TOMORROW ON HIM.
[2020-07-22] VITALS (67 sets, daily range): BP systolic 79–163; BP diastolic 50–101
[2020-07-22 05:43] LABS: HEMATOCRIT 24.9 % (42.0-54.0); HEMOGLOBIN 8.1 g/dL (13.5-17.5); MCH 29.2 pg (26.0-34.0); MCHC 32.5 g/dL (31.0-37.0); MCV 89.9 fL (80.0-100.0); RBC 2.77 10x6/uL (4.20-6.10); RDW 22.7 % (11.5-14.5); WBC 25.1 10x3/uL (4.8-10.8)
[2020-07-22 05:44] LABS: LYMPHOCYTES 3.3 % (15-50); NEUTROPHILS 91.3 % (40-80); PLATELET COUNT 123 10x3/uL (130-400)
[2020-07-22 06:11] LABS: ALBUMIN 0.8 g/dL (3.4-5.0); ANION GAP 16.1 mmol/L (8-16); BILIRUBIN - DIRECT 7.77 mg/dL (0.00-0.30); BILIRUBIN - INDIRECT 0.71 mg/dL (0.00-1.00); BILIRUBIN - TOTAL 8.48 mg/dL (0.2-1.3); CALCIUM 7.1 mg/dL (8.5-10.1); CARBON DIOXIDE 20.6 mmol/L (21.0-32.0); CREATININE - SERUM 3.9 mg/dL (0.6-1.3); PHOSPHOROUS 4.2 mg/dL (2.5-4.9); POTASSIUM - SERUM 3.7 mmol/L (3.5-5.1); PROTEIN - SERUM 4.4 g/dL (6.4-8.2)
[2020-07-22 10:12] LABS: AMPHOTERICIN B MIC 0.25 ug/mL (())
--- NOTE | 2020-07-22 12:35 | NUR ---
Nutrition Follow-up: Remains intubated. Exlap rescheduled for today. TPN @ 60 mL/hr Labs reviewed Meds reviewed -Will continue current TPN at this time. -RD following.
--- NOTE | 2020-07-22 17:54 | NUR ---
PATIENT LEFT FOR OR WITH CREW AND MEDICATED ORDERED TOLD BY ANESTHESIS NOT TO GIVE ROBINAL.
--- NOTE | 2020-07-22 18:44 | NUR ---
5 LAPS LEFT IN ABDOMINAL WOUND, AYANNA.
[2020-07-23] VITALS (94 sets, daily range): BP systolic 86–193; BP diastolic 48–115
[2020-07-23 05:11] LABS: CREATININE - SERUM 3.7 mg/dL (0.6-1.3); PHOSPHOROUS 3.5 mg/dL (2.5-4.9)
[2020-07-23 05:21] LABS: ANION GAP 19.9 mmol/L (8-16); CALCIUM 6.9 mg/dL (8.5-10.1); POTASSIUM - SERUM 2.9 mmol/L (3.5-5.1)
[2020-07-23 05:24] LABS: HEMATOCRIT 22.2 % (42.0-54.0); HEMOGLOBIN 7.4 g/dL (13.5-17.5); LYMPHOCYTES 2.8 % (15-50); MCH 29.8 pg (26.0-34.0); MCHC 33.3 g/dL (31.0-37.0); MCV 89.5 fL (80.0-100.0); MEAN PLATELET VOLUME 11.5 fL (7.4-10.4); NEUTROPHILS 93.6 % (40-80); PLATELET COUNT 161 10x3/uL (130-400); RBC 2.48 10x6/uL (4.20-6.10); RDW 23.4 % (11.5-14.5); WBC 25.1 10x3/uL (4.8-10.8)
--- NOTE | 2020-07-23 07:00 | NUR ---
AM ROUNDS COMPLETED. SHIFT ASSESSMENT DONE. PT IS SWOLLEN ALL OVER AND HAVE EXTENSIVE WEEPING EDEMA AND BLISTERS WEEPING EVERYWHERE. MEPILEX TO BUTTOCKS IN PLACE AND PT HAS A PRESSURE ULCER BENEATH, WILL TRY TO KEEP CLEAN AND TRY AND CONTINUE REPOSITIONING PT. PITTING EDEMA ALL OVER WELL. PT IS OFF SEDATION AND WILL OPEN HIS EYES BUT UNABLE TO FOLLOW COMMANDS. PT HAS A LEFT CHEST CVL WITH DRSG CDI. PT HAS A R.CHEST HEMESPLIT WITH DRSG CDI. PT HAS A R.WRIST RADIAL ART LINE WITH ARM BRACE AND DRSG CDI. PT HAS A WOUND VAC TO ABDOMEN NO LEAK DETECTED AND DRAINING DARK BLOODY DRAINAGE. SEVERAL BRUISING NOTED ALL OVER AND ABDOMEN IS FULL OF PETECHIA AROUND WOUND VAC SITE. DAVILA IN PLACE BUT PT VERY OLIGURIC DARK CONCENTRATED URINE. VENT IN PLACE AND SECURED ALONG WITH OGT TO LIS. PTS COLOR SLIGHTLY JAUNDICED AND SCLERA HAS YELLOWING WITH SOME DRAINAGE. AIR OVERLAY AIR MATTRESS IN PLACE. WILL CHECK CHART AND ORDERS AND BEGIN PLAN OF CARE.
--- NOTE | 2020-07-23 08:25 | NUR ---
ROUNDING AND NEW ORDERS OBTAINED. HGB LOWER TODAY AT 7.4 WILL TRANSFUSE 2 UNITS OR PRBCS. PLATELETS ARE BETTER AFTER YESTERDAYS TRANSFUSION. WILL GET NEW BLOOD CULTURES. APPARENTLY RENAL WANTING PT TRANSFERRED HE REMAINS CRITICAL AND UNABLE TO TOLERATE DIALYSIS. WILL DISCUSS WITH ENTIRE TEAM AND FIND OUT PLAN.
--- NOTE | 2020-07-23 10:18 | NUR ---
DISCUSSED WITH ENTIRE TEAM ABOUT TRANSFERRING PT. TALKED TO CM AND NILO IS WORKING ON IT. WILL BEGIN COBRA FORM. NILO CALLED HOSPITALS IN [place] AND ALL ARE FULL. WILL CONTINUE WITH PROCESS. DISCUSSED WITH PTS GIRLFRIEND AND MOTHER AND EXPLAINED PROGRESS AND CURRENT PLANS. PT IS TO RECIEVE 2 UNITS OF BLOOD AND I BROUGHT TO DIALYSIS NURSE SHE WILL TRANSFUSE ON DIALYSIS. PT REC'D 2/3 BAGS ON HIS POTASSIUM REPLACEMENT. WILL CONTINUE WITH PLAN OF CARE.
--- NOTE | 2020-07-23 10:39 | NUR ---
BLOOD CULTURES X2 DRAWN. VIA R.CHEST HEMESPLIT AND SECOND VIA L.CHEST CVL. SENT TO LAB.
--- NOTE | 2020-07-23 12:23 | NUR ---
Nutrition Follow-up: Remains intubated. S/p pancreatic debridement yesterday. Noted K+ 2.9; pt on electrolyte protocol and received KCl. TPN @ 60 mL/hr Wt: 285.4# (07/21) -No changes made to TPN at this time. -Draw Trig; will reevaluate for lipids. -RD following.
--- NOTE | 2020-07-23 12:48 | MORECARE ---
CASE MANAGEMENT DISCHARGE SUMMARY PATIENT: GINGER AHUJA UNIT: [id number] ADM DATE: 06/29/20 AGE: 50 : 74 SEX: M ROOM/BED: D.2302 AUTHOR: OPAL,DOC PHYSICIAN: REFERRING PHYSICIAN: JAMI CALIX MD DATE OF SERVICE: 07/23/20 Discharge Plan Patient Name: GINGER AHUJA Facility: [facility]:[place] : 1970 Planned Disposition: Anticipated Discharge Date: Discharge Date: Expected LOS: Initial Reviewer: [email or web address] Initial Review Date: 06/29/2020 Generated: 07/23/20 1:47 pm Comments DCP- Discharge Planning Updated by [email or web address]: Zee Obrien on 07/23/20 11:[address] CM received a request to assist with transfer for CRRT. Telephone call to [facility] physician call center. Spoke w/ Shyla. [facility] - critical ICU Max. No ICU Beds. Many waiting in ER. CM provided patient's name and contact phone number. Recommendation to extend search. TC to [facility] [place]. Spoke w/ Evelyne. ICU at capacity. No available bed. Just came of Max. !0 people on their list. Reviewed referral. Answered questions and reviewed clinical. She requested the Renal MD contact as patient would be accepted to that service. CM faxed face sheet with DR Hamilton's contact phone number and DR Peters's contact phone number as he had written the order. CM also faxed renal note for 07/23/20. Evelyne stated by LR ICU board [facility] was also without ICU beds. TC to [facility] to ascertain which hospitals / medical centers offer this service outside of the [facility]. Possible [facility] in [place]. TC to [facility] LR Transfer Center. Spoke with Tiffanie. Just came off Max and no ICU beds available. She did state to call back later today perhaps a bed may open. DCP- Discharge Planning Updated by [email or web address]: Rachel Ballard on 07/17/20 8:[address] CM received a call from [facility] asking for notice when patient getting closer to discharge so they are prepared . CM will continue to follow and assist as needed with discharge planning / needs. DCP- Discharge Planning Updated by [email or web address]: Britt Patricio on 07/03/20 3:[address] Per Lucía Reyes international account representative, is working on HD chair/time/place. Coverage Notice Reviewer: [id number] Irena Robledo Notice Issued Date-Time: 07/08/2020 14:30 Notice Type: Patient Choice Letter Notice Delivered To: Patient Relationship to Patient: Self Precast Worker Name: Delivery Method: HAND - Hand Delivered Lindsey Days: Prior Verbal Notification: Recipient Understood Notice: Yes Recipient Signature: Yes Med Rec Note Co-signed by Attending: Coverage Notice Comment: [facility] IP REHAB Last DP export: 07/17/20 9:06 p Patient Name: GINGER AHUJA Page [id number] at 1248 All edits/amendments must be made on the electronic document DICTATION DATE: 07/23/20 1247 TRAVERSE ROD ASSEMBLER: SAVANAH 07/23/20 1247 RPT#: [id number] DC DATE: STATUS: ADM IN [facility] [address] [place] [address] END OF REPORT
--- NOTE | 2020-07-23 13:48 | NUR ---
PT TOLERATED DIALYSIS WELL. 1L TOTAL REMOVED. 2 UNITS OF PRBCS GIVEN. DECREASED LEVOPHED DRIP DOWN TO 5MCG/KG/MIN BP 132/98 CURRENTLY VIA ART LINE WITH [employer]. CHASSIS INSPECTOR CALLED AND TALKED ABOUT TRANSFERRING SITUATION AND SHE HAS REACHED OUT TO 5 HOSPITALS HOWEVER ALL ARE CURRENTLY FULL AND HAVE WAITING LIST. WILL CONTINUE TO WORK ON THIS.
--- NOTE | 2020-07-23 14:26 | MORECARE ---
CASE MANAGEMENT DISCHARGE SUMMARY PATIENT: GINGER AHUJA UNIT: [id number] ADM DATE: 06/29/20 AGE: 50 : 74 SEX: M ROOM/BED: D.2302 AUTHOR: OPAL,DOC PHYSICIAN: REFERRING PHYSICIAN: JAMI CALIX MD DATE OF SERVICE: 07/23/20 Discharge Plan Patient Name: GINGER AHUJA Facility: [facility]:[place] : 1970 Planned Disposition: Anticipated Discharge Date: Discharge Date: Expected LOS: Initial Reviewer: [id number] Initial Review Date: 06/29/2020 Generated: 07/23/20 3:25 pm Comments DCP- Discharge Planning Updated by [email or web address]: Zee Obrien on 07/23/20 1:[address] TELEPHONE CALL TO [facility] IN [place] AT [phone] FAX [phone]. SPOKE WITH MARÍA. HE REQUESTED CM TO FAX FACE SHEET, H/P, PROGRESS NOTES FOR EACH SPECIALITY, MED REC, VENT RECORD, LABS , COVID TESTING, CXR AND OTHER PERTINENT CLINICAL FOR REVIEW. [facility] HAS CRRT HOWEVER NEED TO VERIFY ALL OF HIS NEEDS CAN BE MET., DCP- Discharge Planning Updated by [id number]: Zee Obrien on 07/23/20 11:[address] CM received a request to assist with transfer for CRRT. Telephone call to [facility] physician call center. Spoke w/ Shyla. [facility] - critical ICU Max. No ICU Beds. Many waiting in ER. CM provided patient's name and contact phone number. Recommendation to extend search. TC to [facility]. Spoke w/ Evelyne. ICU at capacity. No available bed. Just came of Max. !0 people on their list. Reviewed referral. Answered questions and reviewed clinical. She requested the Renal MD contact as patient would be accepted to that service. CM faxed face sheet with DR Hamilton's contact phone number and DR Peters's contact phone number as he had written the order. CM also faxed renal note for 07/23/20. Evelyne stated by ICU board [facility] was also without ICU beds. TC to [facility] to ascertain which hospitals / medical centers offer this service outside of the [facility]. Possible [facility] [place]. TC to [facility] LR Transfer Center. Spoke with Tiffanie. Just came off Max and no ICU beds available. She did state to call back later today perhaps a bed may open. DCP- Discharge Planning Updated by [email or web address]: Rachel Danielsr on 07/17/20 8:[address] CM received a call from [facility] asking for notice when patient getting closer to discharge so they are prepared . CM will continue to follow and assist as needed with discharge planning / needs. DCP- Discharge Planning Updated by [email or web address]: Britt Patricio on 07/03/20 3:[address] Per Shelley Valente, Lucía uniforms sales representative, is working on HD chair/time/place. Coverage Notice Reviewer: [id number] Irena Robledo Notice Issued Date-Time: 07/08/2020 14:30 Notice Type: Patient Choice Letter Notice Delivered To: Patient Relationship to Patient: Self Pbx Repairer Name: Delivery Method: HAND - Hand Delivered Lindsey Days: Prior Verbal Notification: Recipient Understood Notice: Yes Recipient Signature: Yes Med Rec Note Co-signed by Attending: Coverage Notice Comment: [facility] IP REHAB Last DP export: 07/23/20 11:48 a Patient Name: GINGER AHUJA Page [id number] at 1426 All edits/amendments must be made on the electronic document DICTATION DATE: 07/23/201424 REFRIGERATION PERSON: SAVANAH 07/23/20 142 RPT#: [id number] DC DATE: STATUS: ADM IN [facility] [address] [place] [address] END OF REPORT
--- NOTE | 2020-07-23 16:29 | NUR ---
REPOSITIONED PT UP IN BED TO RELIEVE PRESSURE FROM BOTTOM. ALL LINENS CHANGED PTS BEDDING WAS SOILED WITH WEEPING EDEMA FLUIDS. PT HAD SMALL YELLOW JELLY STOOL ALSO CLEANED. LEVOPHED OFF AND HAS BEEN FOR ABOUT 2 HRS AND PT IS TOLERATING WELL. CURRENT PRESSURE 111/70. DR. HUBER ROUNDED AND IS DISCUSSING POSSIBLY NOT GOING THROUGH WITH TRANSFER HE IS MAKING SOME PROGRESS AND HE WOULD LIKE TO TAKE HIM BACK TO SURGERY ON TUESDAY. HE WILL DISCUSS WITH RENAL HE STATES. TRIED TO GET PT TO FOLLOW COMMANDS AND HE WAS ABLE TO WIGGLE HIS R.FOOT, STILL UNABLE TO PROFESSOR CRIMINAL JUSTICE HANDS OR MOVE FINGERS. PT DOES RESPOND TO HIS NAME AND WAS ACTUALLY ABLE TO TURN HIS HEAD TO EACH SIDE OF THE BED WHEN I CALLED HIS NAME. WILL CONTINUE TO ENCOURAGE PT AND SEE HOW HE DOES. STAYING OPTIMISTIC! WILL UPDATE FAMILY.
--- NOTE | 2020-07-23 16:34 | MORECARE ---
CASE MANAGEMENT DISCHARGE SUMMARY PATIENT: GINGER AHUJA UNIT: [id number] ADM DATE: 06/29/20 AGE: 50 : 74 SEX: M ROOM/BED: D.2302 AUTHOR: OPAL,DOC PHYSICIAN: REFERRING PHYSICIAN: JAMI CALIX MD DATE OF SERVICE: 07/23/20 Discharge Plan Patient Name: GINGER AHUJA Facility: [facility]:[place] : 1970 Planned Disposition: Anticipated Discharge Date: Discharge Date: Expected LOS: Initial Reviewer: [id number] Initial Review Date: 06/29/2020 Generated: 07/23/20 5:34 pm Comments DCP- Discharge Planning Updated by [email or web address]: Zee Obrien on 07/23/20 3:[address] 1530 TC TO F/U ON DECISION. [facility]A WAS NOT IMMEDIATELY AVAILABLE. 1623 REC CB FROM MARÍA AT [facility]. PATIENT HAS BEEN DENIED DUE TO CAPACITY. DCP- Discharge Planning Updated by [email or web address]: Zee Obrien on 07/23/20 1:[address] TELEPHONE CALL TO [facility] IN [place] AT [phone] FAX [phone]. SPOKE WITH MARÍA. HE REQUESTED CM TO FAX FACE SHEET, H/P, PROGRESS NOTES FOR EACH SPECIALITY, MED REC, VENT RECORD, LABS , COVID TESTING, CXR AND OTHER PERTINENT CLINICAL FOR REVIEW. [facility] HAS CRRT HOWEVER NEED TO VERIFY ALL OF HIS NEEDS CAN BE MET., DCP- Discharge Planning Updated by [id number]: Zee Obrien on 07/23/20 11:[address] CM received a request to assist with transfer for CRRT. Telephone call to [facility] physician call center. Spoke w/ Shyla. [facility] - critical ICU Max. No ICU Beds. Many waiting in ER. CM provided patient's name and contact phone number. Recommendation to extend search. TC to [facility]. Spoke w/ Evelyne. ICU at capacity. No available bed. Just came of Max. !0 people on their list. Reviewed referral. Answered questions and reviewed clinical. She requested the Renal MD contact as patient would be accepted to that service. CM faxed face sheet with DR Hamilton's contact phone number and DR Peters's contact phone number as he had written the order. CM also faxed renal note for 07/23/20. Evelyne stated by LR ICU board [facility] was also without ICU beds. TC to [facility] to ascertain which hospitals / medical centers offer this service outside of the [facility]. Possible [facility] [place]. TC to [facility] LR Transfer Center. Spoke with Tiffanie. Just came off Max and no ICU beds available. She did state to call back later today perhaps a bed may open. DCP- Discharge Planning Updated by [id number]: Rachel Ballard on 07/17/20 8:[address] CM received a call from [facility] asking for notice when patient getting closer to discharge so they are prepared . CM will continue to follow and assist as needed with discharge planning / needs. DCP- Discharge Planning Updated by [email or web address]: Britt Patricio on 07/03/20 3:[address] Per Shelley Valente, Lucía equal opportunity representative, is working on HD chair/time/place. Coverage Notice Reviewer: [id number] Irena Robledo Notice Issued Date-Time: 07/08/2020 14:30 Notice Type: Patient Choice Letter Notice Delivered To: Patient Relationship to Patient: Self Hospital Supervisor Name: Delivery Method: HAND - Hand Delivered Lindsey Days: Prior Verbal Notification: Recipient Understood Notice: Yes Recipient Signature: Yes Med Rec Note Co-signed by Attending: Coverage Notice Comment: [facility] IP REHAB Last DP export: 07/23/20 1:26 p Patient Name: GINGER AHUJA Page 12178 at 1634 All edits/amendments must be made on the electronic document DICTATION DATE: 07/23/201633 DRAWING CHECKER: SAVANAH 07/23/201633 RPT#: [id number] DC DATE: STATUS: ADM IN [facility] [address] [place] [address] END OF REPORT
--- NOTE | 2020-07-23 16:42 | MORECARE ---
CASE MANAGEMENT DISCHARGE SUMMARY PATIENT: GINGER AHUJA UNIT: [id number] ADM DATE: 06/29/20 AGE: 50 : 74 SEX: M ROOM/BED: D.2302 AUTHOR: OPAL,DOC PHYSICIAN: REFERRING PHYSICIAN: JAMI CALIX MD DATE OF SERVICE: 07/23/20 Discharge Plan Patient Name: GINGER AHUJA Facility: [facility]:[place] : 1970 Planned Disposition: Anticipated Discharge Date: Discharge Date: Expected LOS: Initial Reviewer: [id number] Initial Review Date: 06/29/2020 Generated: 07/23/20 5:42 pm Comments DCP- Discharge Planning Updated by [email or web address]: Zee Obrien on 07/23/20 3:[address] TC BACK TO [facility] [place]. SPOKE WITH TIFFANIE. SITUATION WORSEN. [facility] IS ON ICU MAX AND ED DELAY. POSSIBILITY OF BED THAT OFFERS CRRT AT [place], [place]. CONTACT PHONE NUMBER- [phone]. DCP- Discharge Planning Updated by [id number]: Zee Obrien on 07/23/20 3:[address] 1530 TC TO F/U ON DECISION. MAR[facility] WAS NOT IMMEDIATELY AVAILABLE. 1623 REC CB FROM MARÍA AT [facility]. PATIENT HAS BEEN DENIED DUE TO CAPACITY. DCP- Discharge Planning Updated by [id number]: Zee Obrien on 07/23/20 1:[address] TELEPHONE CALL TO [facility] IN [place] AT [phone] FAX [phone]. SPOKE WITH MARÍA. HE REQUESTED CM TO FAX FACE SHEET, H/P, PROGRESS NOTES FOR EACH SPECIALITY, MED REC, VENT RECORD, LABS , COVID TESTING, CXR AND OTHER PERTINENT CLINICAL FOR REVIEW. [facility] HAS CRRT HOWEVER NEED TO VERIFY ALL OF HIS NEEDS CAN BE MET., DCP- Discharge Planning Updated by [id number]: Zee Obrien on 07/23/20 11:[address] CM received a request to assist with transfer for CRRT. Telephone call to [facility] physician call center. Spoke w/ Shyla. [facility] - critical ICU Max. No ICU Beds. Many waiting in ER. CM provided patient's name and contact phone number. Recommendation to extend search. TC to [facility]. Spoke w/ Evelyne. ICU at capacity. No available bed. Just came of Max. !0 people on their list. Reviewed referral. Answered questions and reviewed clinical. She requested the Renal MD contact as patient would be accepted to that service. CM faxed face sheet with DR Hamilton's contact phone number and DR Peters's contact phone number as he had written the order. CM also faxed renal note for 07/23/20. Evelyne stated by LR ICU board [facility] was also without ICU beds. TC to [facility] to ascertain which hospitals / medical centers offer this service outside of the [facility]. Possible [facility] [place]. TC to [facility] LR Transfer Center. Spoke with Tiffanie. Just came off Max and no ICU beds available. She did state to call back later today perhaps a bed may open. DCP- Discharge Planning Updated by [email or web address]: Rachel Ballard on 07/17/20 8:[address] CM received a call from [facility] asking for notice when patient getting closer to discharge so they are prepared . CM will continue to follow and assist as needed with discharge planning / needs. DCP- Discharge Planning Updated by [id number]: Britt Patricio on 07/03/20 3:[address] Per Lucía Reyes sales solutions representative, is working on HD chair/time/place. Coverage Notice Reviewer: [id number] Irena Robledo Notice Issued Date-Time: 07/08/2020 14:30 Notice Type: Patient Choice Letter Notice Delivered To: Patient Relationship to Patient: Self Window Sash Installer Name: Delivery Method: HAND - Hand Delivered Lindsey Days: Prior Verbal Notification: Recipient Understood Notice: Yes Recipient Signature: Yes Med Rec Note Co-signed by Attending: Coverage Notice Comment: [facility] IP REHAB Last DP export: 07/23/20 3:34 p Patient Name: GINGER AHUJA Page [id number] at 1642 All edits/amendments must be made on the electronic document DICTATION DATE: 07/23/201641 GENERAL SURGERY PHYSICIAN ASSISTANT: SAVANAH 07/23/201641 RPT#: [id number] DC DATE: STATUS: ADM IN [facility] [address] [place] [address] END OF REPORT
--- NOTE | 2020-07-23 17:06 | MORECARE ---
CASE MANAGEMENT DISCHARGE SUMMARY PATIENT: GINGER AHUJA UNIT: [id number] ADM DATE: 06/29/20 AGE: 50 : 74 SEX: M ROOM/BED: D.2302 AUTHOR: OPAL,DOC PHYSICIAN: REFERRING PHYSICIAN: JAMI CALIX MD DATE OF SERVICE: 07/23/20 Discharge Plan Patient Name: GINGER AHUJA Facility: [facility]:[place] : 1970 Planned Disposition: Anticipated Discharge Date: Discharge Date: Expected LOS: Initial Reviewer: [email or web address] Initial Review Date: 06/29/2020 Generated: 07/23/20 6:06 pm Comments DCP- Discharge Planning Updated by [email or web address]: Zee Obrien on 07/23/20 4:[address] TC TO [facility]. PROVIDED WITH THE NURSING PASSENGER SCREENER'S CONTACT NUMBER, BY THE ER STAFF, CM SPOKE WITH [facility] NURSING PASSENGER SCREENER. CONFIRMED CRRT IS AVAILABLE AT THIS FACILITY. SHE WAS GOING TO VERIFY BED AVAILABILITY AND CALL BACK. BED IS AVAILABLE. UPDATED THE PATIENT'S PRIMARY NURSE, LUCIANO. PROVIDED PATIENT'S FACE SHEET INFORMATION AND CLINICAL REVIEW. PROVIDED [facility] MD CONTACT PHONE NUMBERS. SHE WILL HAVE HER MD CONTACT THE [facility] DOCTORS. AWAIT RESPONSE. DCP- Discharge Planning Updated by [id number]: Zee Obrien on 07/23/20 3:[address] TC BACK TO [facility] IN [place]. SPOKE WITH TIFFANIE. SITUATION WORSEN. [facility] IS ON ICU MAX AND ED DELAY. POSSIBILITY OF BED THAT OFFERS CRRT AT [place], [place]. CONTACT PHONE NUMBER- [phone]. DCP- Discharge Planning Updated by [email or web address]: Zee Obrien on 07/23/20 3:[address] 1530 TC TO F/U ON DECISION. [facility] WAS NOT IMMEDIATELY AVAILABLE. 1623 REC CB FROM MARÍA AT [facility]. PATIENT HAS BEEN DENIED DUE TO CAPACITY. DCP- Discharge Planning Updated by [email or web address]: Zee Obrien on 07/23/20 1:[address] TELEPHONE CALL TO [facility] IN [place] AT [phone] FAX [phone]. SPOKE WITH MARÍA. HE REQUESTED CM TO FAX FACE SHEET, H/P, PROGRESS NOTES FOR EACH SPECIALITY, MED REC, VENT RECORD, LABS , COVID TESTING, CXR AND OTHER PERTINENT CLINICAL FOR REVIEW. [facility] HAS CRRT HOWEVER NEED TO VERIFY ALL OF HIS NEEDS CAN BE MET., DCP- Discharge Planning Updated by [email or web address]: Zee Obrien on 07/23/20 11:[address] CM received a request to assist with transfer for CRRT. Telephone call to [facility] physician call center. Spoke w/ Shyla. [facility] - critical ICU Max. No ICU Beds. Many waiting in ER. CM provided patient's name and contact phone number. Recommendation to extend search. TC to [facility]. Spoke w/ Evelyne. ICU at capacity. No available bed. Just came of Max. !0 people on their list. Reviewed referral. Answered questions and reviewed clinical. She requested the Renal MD contact as patient would be accepted to that service. CM faxed face sheet with DR Hamilton's contact phone number and DR Peters's contact phone number as he had written the order. CM also faxed renal note for 07/23/20. Evelyne stated by LR ICU board [facility] was also without ICU beds. TC to [facility] to ascertain which hospitals / medical centers offer this service outside of the [facility]. Possible [facility] [place]. TC to [facility] LR Transfer Center. Spoke with Tiffanie. Just came off Max and no ICU beds available. She did state to call back later today perhaps a bed may open. DCP- Discharge Planning Updated by [email or web address]: Rachel Ballard on 07/17/20 8:[address] CM received a call from [facility] asking for notice when patient getting closer to discharge so they are prepared . CM will continue to follow and assist as needed with discharge planning / needs. DCP- Discharge Planning Updated by [id number]: Britt Patricio on 07/03/20 3:[address] Per Lucía Reyes customer service representative teller, is working on HD chair/time/place. Coverage Notice Reviewer: [id number] Irena Robledo Notice Issued Date-Time: 07/08/2020 14:30 Notice Type: Patient Choice Letter Notice Delivered To: Patient Relationship to Patient: Self Plastic Parts Fabricator Trimmer Name: Delivery Method: HAND - Hand Delivered Lindsey Days: Prior Verbal Notification: Recipient Understood Notice: Yes Recipient Signature: Yes Med Rec Note Co-signed by Attending: Coverage Notice Comment: [facility] IP REHAB Last DP export: 07/23/20 3:42 p Patient Name: GINGER AHUJA Page 81968 at 1706 All edits/amendments must be made on the electronic document DICTATION DATE: 07/23/201705 MEDICAL RECORD ASSISTANT: SAVANAH 07/23/201705 RPT#: [id number] DC DATE: STATUS: ADM IN [facility] [address] [place] [address] END OF REPORT
--- NOTE | 2020-07-23 17:58 | NUR ---
VERBAL ORDER TO REMOVE DAVILA CATHETER REC'D D/C CATHETER WITH DAVILA TIP FULLY INTACT. PT REMAINS WITH STABLE BP WITH JUST VASOPRESSIN. CLEANED PT UP FROM INCONTINENCE OF YELLOW JELLY STOOL. REPOSITIONED PT UP IN BED FOR COMFORT. APPARENTLY WE GOT A BED. I CALLED TO MAKE SURE WE WERE ALL ON BOARD AND HE IS GOING TO CONTACT FAMILY NOONE ELSE HAS DISCUSSED THE TRANSFER WITH THEM.
--- NOTE | 2020-07-23 18:30 | MORECARE ---
CASE MANAGEMENT DISCHARGE SUMMARY PATIENT: GINGER AHUJA UNIT: [id number] ADM DATE: 06/29/20 AGE: 50 : 74 SEX: M ROOM/BED: D.2302 AUTHOR: OPAL,DOC PHYSICIAN: REFERRING PHYSICIAN: JAMI CALIX MD DATE OF SERVICE: 07/23/20 Discharge Plan Patient Name: GINGER AHUJA Facility: [facility]:[place] : 1970 Planned Disposition: Anticipated Discharge Date: Discharge Date: Expected LOS: Initial Reviewer: [email or web address] Initial Review Date: 06/29/2020 Generated: 07/23/20 7:29 pm Comments DCP- Discharge Planning Updated by [email or web address]: Zee Obrien on 07/23/20 5:[address] REC TELEPHONE CALL FROM PRIMARY NURSE. PATIENT CANNOT BE TRANSFERED AN EMERGENCY ROOM PATIENT ARRIVED TO TAKE THE LAST BED AT [facility] ICU. DCP- Discharge Planning Updated by [id number]: Zee Obrien on 07/23/20 4:[address] TC TO [facility]. PROVIDED WITH THE NURSING WAREHOUSE ASSISTANT'S CONTACT NUMBER, BY THE ER STAFF, CM SPOKE WITH EFRAIN, NURSING WAREHOUSE ASSISTANT. CONFIRMED CRRT IS AVAILABLE AT THIS FACILITY. SHE WAS GOING TO VERIFY BED AVAILABILITY AND CALL BACK. BED IS AVAILABLE. UPDATED THE PATIENT'S PRIMARY NURSE, LUCIANO. PROVIDED PATIENT'S FACE SHEET INFORMATION AND CLINICAL REVIEW. PROVIDED [facility] MD CONTACT PHONE NUMBERS. SHE WILL HAVE HER MD CONTACT THE [facility] DOCTORS. AWAIT RESPONSE. DCP- Discharge Planning Updated by [email or web address]: Zee Obrien on 07/23/20 3:[address] TC BACK TO [facility] IN [place]. SPOKE WITH TIFFANIE. SITUATION WORSEN. [facility] IS ON ICU MAX AND ED DELAY. POSSIBILITY OF BED THAT OFFERS CRRT AT [facility], [place], [place]. CONTACT PHONE NUMBER- [phone]. DCP- Discharge Planning Updated by [email or web address]: Zee Obrien on 07/23/20 3:[address] 1530 TC TO F/U ON DECISION. [facility] WAS NOT IMMEDIATELY AVAILABLE. 1623 REC CB FROM [facility] AT [facility]. PATIENT HAS BEEN DENIED DUE TO CAPACITY. DCP- Discharge Planning Updated by [id number]: Zee Obrien on 07/23/20 1:[address] TELEPHONE CALL TO [facility] IN [place] AT [phone] FAX [phone]. SPOKE WITH MAR[facility]A. HE REQUESTED CM TO FAX FACE SHEET, H/P, PROGRESS NOTES FOR EACH SPECIALITY, MED REC, VENT RECORD, LABS , COVID TESTING, CXR AND OTHER PERTINENT CLINICAL FOR REVIEW. [facility] HAS CRRT HOWEVER NEED TO VERIFY ALL OF HIS NEEDS CAN BE MET., DCP- Discharge Planning Updated by [email or web address]: Zee Obrien on 07/23/20 11:[address] CM received a request to assist with transfer for CRRT. Telephone call to [facility] physician call center. Spoke w/ Shyla. [facility] - critical ICU Max. No ICU Beds. Many waiting in ER. CM provided patient's name and contact phone number. Recommendation to extend search. TC to [facility]. Spoke w/ Evelyne. ICU at capacity. No available bed. Just came of Max. !0 people on their list. Reviewed referral. Answered questions and reviewed clinical. She requested the Renal MD contact as patient would be accepted to that service. CM faxed face sheet with DR Hamilton's contact phone number and DR Peters's contact phone number as he had written the order. CM also faxed renal note for 07/23/20. Evelyne stated by LR ICU board [facility] was also without ICU beds. TC to Sandra Bowden to ascertain which hospitals / medical centers offer this service outside of the [facility]. Possible [facility] in [place]. TC to [facility]. Spoke with Tiffanie. Just came off Max and no ICU beds available. She did state to call back later today perhaps a bed may open. DCP- Discharge Planning Updated by [email or web address]: Rachel Ballard on 07/17/20 8:[address] CM received a call from [facility] asking for notice when patient getting closer to discharge so they are prepared . CM will continue to follow and assist as needed with discharge planning / needs. DCP- Discharge Planning Updated by [email or web address]: Britt Sheng on 07/03/20 3:[address] Per Lucía Reyes freight representative, is working on HD chair/time/place. Coverage Notice Reviewer: [email or web address] Irena Robledo Notice Issued Date-Time: 07/08/2020 14:30 Notice Type: Patient Choice Letter Notice Delivered To: Patient Relationship to Patient: Self Flatbed Owner Operator Name: Delivery Method: HAND - Hand Delivered Lindsey Days: Prior Verbal Notification: Recipient Understood Notice: Yes Recipient Signature: Yes Med Rec Note Co-signed by Attending: Coverage Notice Comment: [facility] IP REHAB Last DP export: 07/23/20 4:06 p Patient Name: GINGER AHUJA Page [id number] at 1830 All edits/amendments must be made on the electronic document DICTATION DATE: 07/23/201828 BATCH ROLLER OPERATOR: SAVANAH 07/23/201828 RPT#: [id number] DC DATE: STATUS: ADM IN [facility] [address] [place] [address] END OF REPORT
--- NOTE | 2020-07-23 19:26 | NUR ---
AT BEDSIDE ROUNDING. CHANGED OUT WOUND VAC CANISTER IT HAS FILLED. PLANNING FOR SURGERY AGAIN ON TUESDAY. BEDSIDE SHIFT REPORTING COMPLETE. WILL PASS ON CARE FOR THIS PT.
[2020-07-24] VITALS (96 sets, daily range): BP systolic 55–120; BP diastolic 39–80
[2020-07-24 05:15] LABS: ANION GAP 18.8 mmol/L (8-16); CALCIUM 7.3 mg/dL (8.5-10.1); CARBON DIOXIDE 19.1 mmol/L (21.0-32.0); CREATININE - SERUM 3.4 mg/dL (0.6-1.3); PHOSPHOROUS 2.7 mg/dL (2.5-4.9)
[2020-07-24 05:16] LABS: POTASSIUM - SERUM 2.9 mmol/L (3.5-5.1)
[2020-07-24 05:23] LABS: HEMATOCRIT 32.4 % (42.0-54.0); HEMOGLOBIN 10.5 g/dL (13.5-17.5); MCH 28.2 pg (26.0-34.0); MCHC 32.4 g/dL (31.0-37.0); MCV 86.9 fL (80.0-100.0); PLATELET COUNT 117 10x3/uL (130-400); RBC 3.73 10x6/uL (4.20-6.10); RDW 20.2 % (11.5-14.5); WBC 32.8 10x3/uL (4.8-10.8)
--- NOTE | 2020-07-24 07:00 | NUR ---
REC'D REPORT AND RESUMED CARE, ETT TO VENTILATION AND SECURED, OGT TO LIWS, AROUSES TO VERBNAL STIMULI, VSS, MIDLINE ABDOMINAL WV IN PLACE WITH SANGUINOUS DRAINAGE TO CANISTER, 4+ EDEMA NOTED TO UPPER AND LOWER EXTREMETIES, ASSESSMENT COMPLETED PER FLOWSHEET, PRESSORS IN USE
[2020-07-24 07:40] LABS: EOSINOPHILS 2 % (0-7); LYMPHOCYTES 2 % (15-50); MONOCYTES 18 % (2-11); NEUTROPHILS 56 % (40-80); PLATELET ESTIMATE DECREASED
--- NOTE | 2020-07-24 10:40 | NUR ---
PC FROM DR HUBER, WILL DO SURGERY ON 07/25, IF NOT SHIPPED TO ANOTHER FACILITY TODAY, CONSENTS COMPLETED
--- NOTE | 2020-07-24 11:15 | NUR ---
PER LAB, +BLOOD CULTURE, VENOUS GROWING GRAM - RODS, ISOLATION NOT NECESSARY AT THIS TIME
--- NOTE | 2020-07-24 11:30 | NUR ---
HD IN PROGRESS, PER NURSE, UF DECREASED AND WOULD LIKE TO GO FOR A GOAL OF 1 LITER, BP 74/55 WITH MAP OF 60 1148 TERMINATED HD, BP 61/48, AFTER TERMINATION BP AND VS, 116/76 HR 98, TEMP 97.8, RESP 17
--- NOTE | 2020-07-24 12:04 | NUR ---
Nutrition Follow-up: Pt remains intubated. Noted plans for re-debridement tomorrow. TPN @ 60 mL/hr Wt: 285.4# (07/21) Labs noted: Na 134, K+ 2.9, Glu 218, Ca 7.3, PO4 2.7, Mg 1.9, Trig 222 Meds noted: Humalog, Protonix, electrolyte protocol -Labs reviewed; changes made to TPN. -+lipids q 72h. -RD following.
[2020-07-25] VITALS (71 sets, daily range): BP systolic 57–155; BP diastolic 42–75
[2020-07-25 06:51] LABS: ANION GAP 24.9 mmol/L (8-16); BILIRUBIN - TOTAL 9.48 mg/dL (0.2-1.3); CALCIUM 7.1 mg/dL (8.5-10.1); CARBON DIOXIDE 14.9 mmol/L (21.0-32.0); CREATININE - SERUM 3.6 mg/dL (0.6-1.3); PHOSPHOROUS 4.7 mg/dL (2.5-4.9); POTASSIUM - SERUM 3.8 mmol/L (3.5-5.1); PROTEIN - SERUM 3.6 g/dL (6.4-8.2)
[2020-07-25 07:03] LABS: HEMOGLOBIN 9.5 g/dL (13.5-17.5); MCH 28.4 pg (26.0-34.0); MCHC 31.7 g/dL (31.0-37.0); MCV 89.6 fL (80.0-100.0); PLATELET COUNT 81 10x3/uL (130-400); RBC 3.35 10x6/uL (4.20-6.10); RDW 21.5 % (11.5-14.5); WBC 37.7 10x3/uL (4.8-10.8)
[2020-07-25 08:18] LABS: EOSINOPHILS 2 % (0-7); LYMPHOCYTES 7 % (15-50); MONOCYTES 15 % (2-11); NEUTROPHILS 60 % (40-80); PLATELET ESTIMATE DECREASED; PLATELET MORPHOLOGY NORMAL PLT MORPH
--- NOTE | 2020-07-25 12:05 | NUR ---
Nutrition Follow-up: Intubated. Noted plans to return to OR today. TPN @ 60 mL/hr + lipids q 72 hrs Wt: 285.4# (07/21) Labs noted: Na 139, K+ 3.8, Glu 114, Ca 7.1, PO4 4.7, Mg 2.0, Alb 1.0 Meds noted: Florajen, Humalog, Protonix, electrolyte protocol -Labs reviewed; changes made to TPN. -RD following.
--- NOTE | 2020-07-25 16:43 | NUR ---
UNABLE TO DRAW VIA CENTRAL LINE FOR LAB. LAB NOTIFIED TO COME DRAW PATIENT STAT.
[2020-07-25 17:10] LABS: INR 2.72 (0.85-1.17); PROTIME 28.4 SECONDS (11.6-15.0)
--- NOTE | 2020-07-25 18:34 | OP ---
PATIENT NAME: GINGER AHUJA MEDICAL RECORD: [id number] :74 LOCATION:D.[facility] D.2302 ADMISSION DATE:06/29/20 SURGEON: ISIAH HUBER MD DATE OF OPERATION: 07/22/2020 PREOPERATIVE DIAGNOSES: 1. Infected pancreatic necrosis. 2. Septic shock. 3. Acute renal failure requiring hemodialysis. POSTOPERATIVE DIAGNOSES: 1. Infected pancreatic necrosis. 2. Septic shock. 3. Acute renal failure requiring hemodialysis. 4. Additional necrotic pancreatic material. SURGEON: Isiah Huber MD BLOOD LOSS: Less than 50 cc of new blood loss. COMPLICATIONS: None. The risks, possible complications and alternatives to the procedure were explained to the patient's family. They have elected to proceed. OPERATIVE COURSE: The patient was conveyed to the operating room electively on 07/22/2020. General anesthesia was induced by the anesthesia staff. The ABThera wound VAC was removed in its entirety. Five laparotomy pads that had been used for packing, were removed in their entireties. There was more, very dark, murky fluid throughout the abdomen. This was aspirated. I then irrigated in all quadrants with normal saline. Some adhesions that were forming were taken down using finger dissection. I ensured that the entire small bowel was freed up except for the distal most portion where it entered the right colon. There was no evidence of full thickness colonic injury. No evidence of full thickness small bowel injury. Utilizing the operative suction and some Vincentian forceps, I continued my dissection through the transverse colon mesentery removing saponified material as well as some portions of necrotic pancreas. At no time did I identify any bowel injury. I then approached the pancreatic bed through the lesser sac. We were able to open up the lesser sac wider, which allowed greater access to necrotic pancreatic material. I removed all the pancreatic material bluntly that I could identify. We then used the pulse support engineer to perform some pulse suction debridement and this was done inferior to the transverse colon mesentery as well as through the transverse colon mesenteric defects and onto the pancreatic bed through the lesser sac. We then irrigated with normal saline in all quadrants. There was no bleeding. I then placed 5 laparotomy packs for packing. Two of these were in the lesser sac. Three of these were inferior to the transverse colon mesentery. We then cut a ABThera wound VAC to the proper size. This was inserted into the peritoneal cavity. On top of this, ABThera sponges were placed and then cellophane-type dressing, which was then scored and the wound VAC disc was applied. This was attached to suction and it held a good "raisin" indicating a OPERATIVE REPORT [id number] GINGER AHUJA good suction without a leak. The patient was then conveyed back to the intensive care unit in critical condition. TRANSINT:[id number] Voice Confirmation ID: [id number] DOCUMENT ID: [id number] 07/25/2020 Edited for grinding machine operator portable errors, [email or web address]. ISIAH HUBER MD at 1834 CC: [id number] DICTATION DATE: 07/24/20 1156 SHEET METAL PRODUCTION WORKER: 07/24/20 1222 ADM IN [facility] [address] [place] [address]
--- NOTE | 2020-07-25 18:34 | OP ---
PATIENT NAME: GINGER AHUJA MEDICAL RECORD: [id number] :74 LOCATION:.[facility] D.2302 ADMISSION DATE:06/29/20 SURGEON: ISIAH HUBER MD DATE OF OPERATION: 07/18/2020 PREOPERATIVE DIAGNOSES: 1. Infected pancreatic necrosis. 2. Septic shock. POSTOPERATIVE DIAGNOSES: 1. Infected pancreatic necrosis. 2. Septic shock. 3. Additional necrotic pancreatic material. SURGEON: Isiah Huber MD JAVA MOBILE DEVELOPER: None. BLOOD LOSS: About 50 cc of new blood loss. ANESTHESIA: General. The risks, possible complications, and alternatives to the procedure were explained to the patient's family. They elected to proceed. OPERATIVE COURSE: The patient was conveyed the operating room electively on 07/18/2020. General anesthesia was induced by the anesthesia staff. The abdomen was sterilely prepped and draped. The ABThera wound VAC was removed in its entirety. There were 5 laparotomy packs which has been packed into the abdomen during the last operation. These were removed in their entireties. There was a lot of dark turbid fluid throughout the abdomen and this was aspirated. I then irrigated with normal saline in all quadrants. There were some forming adhesions between loops of small bowel. Through blunt finger dissection, I was able to free these up. I continued my pancreatic debridement through the base of the transverse mesocolon. I did this with a ring forceps, Malagasy forceps, as well as with a Yankauer suction. Once I did as much of this as was necessary, I then approached the pancreas through the lesser sac. I was able to come right down on top of the pancreatic bed. The debridement was carried out here again with ring forceps, Malagasy forceps, as well as with my fingers and Yankauer suction. Saponified material as well as portions of necrotic pancreas were removed. I then performed some suction debridement utilizing the pulsed irrigation suction device. I then packed 5 laparotomy pads into the abdomen, 2 in the lesser sac and then 3 just inferior to the transverse colon mesentery. I ensured that there was no bleeding. I cut an ABThera wound VAC to size. It was placed in the abdominal cavity. The sponges were applied on top of this ABThera wound VAC. The clear dressings were applied and then scored. I then attached the wound VAC disc and it was attached to suction, which held a good "raisin" indicating suction without significant leakage. The patient was then conveyed back to the intensive care unit in critical condition. OPERATIVE REPORT [id number] GINGER AHUJA TRANSINT:[id number] Voice Confirmation ID: [id number] DOCUMENT ID: [id number] ISIAH HUBER MD at 1834 CC: [id number] DICTATION DATE: 07/24/20 1240 DOCUMENT PROCESSING SPECIALIST: 07/24/20 1403 ADM IN [facility] [id number] [place] [address]
--- NOTE | 2020-07-25 19:14 | NUR ---
DR. HUBER AT BEDSIDE OPENED ABDOMEN AT 1910. 5 LAPS REMOVED FROM ABDOMEN.
--- NOTE | 2020-07-25 19:20 | NUR ---
1916 TIME OUT AND START TIME WITH OR CREW.
--- NOTE | 2020-07-25 19:26 | NUR ---
STAFF IN ROOM ASSISTING PHYSICIAN, ADRIAN MARIE, STACEY MONTES DE OCA, LAWRENCE STILL, LENI REEVES.
--- NOTE | 2020-07-25 19:56 | NUR ---
1954 4 LAPS LEFT IN ABD 1958 5 LAPS IN ABD 2003 PROCEDURE COMPLETE FINAL COUNT IS CORRECT MINUS FIVE LAPS LEFT IN ABDOMEN. 2010 SURGEON IN FAMILY ROOM UPDATING FAMILY
--- NOTE | 2020-07-25 22:41 | NUR ---
2129 DR HUBER AT BEDSIDE. ABG RESULTS GIVEN. NEW ORDERS RECEIVED VERBALLY PER DR HUBER FOR SODIUM BICARB AND PRBC. ALL DRAIN LINES AND INCISION INSPECTED BY MD AND RN. NO NEW INSTRUCTION AT THIS TIME R/T DRAINS AND INCISION. DRESSING STILL INTACT. WILL CONTINUE TO MONITOR
[2020-07-26] VITALS (55 sets, daily range): BP systolic 65–109; BP diastolic 33–99
[2020-07-26 07:23] LABS: BASOPHILS 1.1 % (0-2); EOSINOPHILS 0.8 % (0-7); HEMOGLOBIN 9.2 g/dL (13.5-17.5); LYMPHOCYTES 7.1 % (15-50); MCH 28.7 pg (26.0-34.0); MCHC 31.7 g/dL (31.0-37.0); MCV 90.3 fL (80.0-100.0); PLATELET COUNT 79 10x3/uL (130-400); RBC 3.21 10x6/uL (4.20-6.10); RDW 20.2 % (11.5-14.5); WBC 34.7 10x3/uL (4.8-10.8)
--- NOTE | 2020-07-26 14:19 | NUR ---
Nutrition Follow-up: Pt remains intubated. Noted labs cancelled today and pt with positive cultures. Unable to tolerate HD with net fluid gain of 9L yesterday. -Hold TPN/lipids and start D10 @ 30 mL/hr. -RD following.
--- NOTE | 2020-07-26 15:44 | NUR ---
0700 REPORT RECIEVED AND CARE ASSUMED OF PATIENT.. SEE FLOW SHEET FOR ASSESMENT FIDNINGS.. 1100 DIALYSIS AT BEDSIDE.. 1215 DIALYSIS ABORTED DUE TO BP 1300 DR HUBER IN TO SEE PATIENT UPDATE GIVEN AND PHONE NUMBER OF MOTHER GIVEN TO DR Bethea. CALLING THE MOTHER TO TELL HER THAT PTS LACTIC ACID IS 28 TODAY AND HE IS NOT DOING WELL .. HE STATED THAT HE ENCOURAGED HER TO COME UP TO THE HOSPITAL
--- NOTE | 2020-07-26 18:57 | NUR ---
1600 MOTHER AND FIANCE HERE TO SEE PATIENT.. DR HUBER SPOKWE WITH THEM AT LENGTH IN THE ICU WAITING AREA.. AFTERWARD THEY CAME IN AND VISITED THE PATIENT.. THEY WERE WITHOUT QUESTIONS AT THIS TIME .. 1800 FAMILY GONE FROM BEDSIDE.. CONTINUES IN WAITING AREA BROTHER FROM [place] IS COMING TO SEE PATIENT .. FAMILY STATES THAT DR HUBER SAID PT WOULD PROBABLY NOT LIVE 12 HOURS
--- NOTE | 2020-07-26 19:41 | OP ---
PATIENT NAME: GINGER AHUJA MEDICAL RECORD: [id number] :74 LOCATION:.[facility] D.2302 ADMISSION DATE:06/29/20 SURGEON: ISIAH HUBER MD DATE OF OPERATION: 07/25/2020 PREOPERATIVE DIAGNOSES: 1. Infected pancreatic necrosis. 2. Septic shock. 3. Profound hypotension. 4. Jaundice. 5. Hepatic failure. POSTOPERATIVE DIAGNOSES: 1. Infected pancreatic necrosis. 2. Septic shock. 3. Profound hypotension. 4. Jaundice. 5. Hepatic failure. 6. New areas of pancreatic necrosis that I debrided. PROCEDURE: Pancreatic re-debridement. Placement of cholecystostomy tube. SURGEON: Isiah Huber MD TDP DISPLAYS ANALYST: None. BLOOD LOSS: 100 mL. ANESTHESIA: IV anesthesia by TELEMARKETING SALES REPRESENTATIVE. I spoke with Dr. Garcia earlier today. She felt the patient was too unstable to be conveyed to the operating room, undergo the procedure, and then be transported back. I agree. We discussed several things with the patient's family including code status. They have elected for a do not resuscitate status, which I think is very dimas at this point in time. They do not want to withdraw care and they do want to proceed ahead with aggressive surgical therapy. An alternative would be to perform the procedure at the patient's bedside. The family was in agreement and so was Dr. Garcia. This operation is being performed in the patient's ICU bed in the ICU without the need to transport the patient to the operating room. We really had no dramatic events occurring from a vital signs standpoint while this procedure was performed in the ICU. Certainly, the patient was hypotensive, but really not any more so than he has been. DESCRIPTION OF PROCEDURE: IV analgesia and anesthesia was induced by the anesthesia staff. The ABThera wound VAC was removed. The abdomen was sterilely prepped and draped. I explored the abdomen. There was less dark mucopurulent material in the abdomen than had previously been seen. There was further necrosis of pancreatic tissue. This was debrided in a piecemeal fashion with ring forceps as well as the Yankauer suction and East Timorese forceps. We irrigated with normal saline. I used the Pulsavac oyster worker to perform some pulse suction debridement. The patient is becoming increasingly jaundiced. I felt that perhaps by OPERATIVE REPORT [id number] GINGER AHUJA decompressing the biliary tree through the use of a cholecystostomy tube this may help with his jaundice and progressive liver failure. I felt that certainly a cholecystostomy tube is not going to make anything worse, but it could potentially help. A circular incision was accomplished in the right upper quadrant. I passed a hemostat from inside the abdomen to the outside through this skin defect and grasped a Klein catheter. I brought it out through the abdominal wall. We inflated the Klein catheter. There was no leakage from the bulb. A small stab incision was accomplished at the fundus of the gallbladder. I advanced the Klein catheter through this puncture site and then inflated the balloon, thus forming the cholecystostomy tube. I then pulled the tubing taut. This pulled the gallbladder up against the anterior abdominal wall. I then brought out two 19-Latvian fully fluted closed suction drainage tubes, one through the right lower quadrant and one through the left lower quadrant and placed them along the abdominal wall gutters. I then irrigated one further time with normal saline. I then packed 5 laparotomy pads into the abdomen. Two were placed inferior to the transverse colon mesentery. 2 were placed in the lesser sac on top of the pancreas. I then draped 1 final laparotomy pad over all the small bowel. We then sutured the cholecystostomy tube and the drain tubes in place with nylon sutures. We then made an Ioban over the entire abdomen including over the drain tubes. The operative procedure was then terminated. NTS:[id number] Voice Confirmation ID: [id number] DOCUMENT ID: [id number] ISIAH HUBER MD at 1941 CC: [id number] DICTATION DATE: 07/26/201721 FARM FIELD MANAGER: 07/26/20 1837 ADM IN [facility] [address] [place] [address]
--- NOTE | 2020-07-26 20:53 | NUR ---
1899 BEDSIDE REPORT RECEIVED AND CARE ASSUMED 1914 PT FAMILY IN ICU WAITING ROOM. PT MOTHER AND BROTHER GIVEN PROPER PPE BEFORE ENTERING PT ROOM. EDUCATED FAMILY OF PT STATUS, COMMUNICATIONS SUPERINTENDENT NECESSITY AND NEED. PT MOTHER INQUIRED ABOUT "TURNING OFF LIFE SUPPORT" EDUCATION GIVEN ABOUT THE PROCESS AND EVENTS FOLLOWING. FAMILY VERBALIZED UNDERSTANDING. 2029 PT MOTHER STATES THAT THEY WANT TO PROCEED WITH TERMINAL EXTUBATION PROCESS AFTER THE FAMILY HAS TIME TO GET SOME DINNER. PT MOTHER GIVEN REASSURANCE THAT STAFF WILL PREPARE AND WAIT FOR THE FAMILY TO RETURN TO BEGIN EXTUBATION PROCESS. 2031 DR HUBER INFORMED OF FAMILY DECISION. 2034 DR HERRING INFORMED OF FAMILY DECISION. NEW ORDERS RECEIVED FOR TERMINAL EXTUBATION 2099 DR ABBOTT INFORMED OF PT FAMILY DECISION. AWAITING FAMILY TO RETURN TO BEGIN PROCESS. PT STATUS REMAINS UNCHANGED 1899 PT LYING IN BED UNRESPONSIVE TO ANY STIMULI. PUPILS FIXED AND NONREACTIVE. ETT TO VENT ON ASSIST CONTROL. VASOPRESSIN, LEVOPHED, AND NEOSYNEPHRINE GTT NOTED.
--- NOTE | 2020-07-27 00:03 | NUR ---
2240 PT FAMILY IN ICU WAITING STATES THAT THEY ARE READY FOR EXTUBATION PROCESS. DENY FURTHER QUESTIONS AT THIS TIME. 2300 ALL MEDS DC'D PER ORDERS. MORPHINE AND ATIVAN IV GIVEN. 2330 RT EXTUBATED PT [address] JORGE NOTIFIED
--- NOTE | 2020-07-27 00:57 | NUR ---
0013 GHOTRA NOTIFIED. REF# [id number] 0025 TIME OF PRONOUNCED BY DR TAMARA MD 0035 [facility] HOME NOTIFIED FOR PT SUB MASTER PER FAMILY PREFERENCE
--- NOTE | 2020-07-28 08:52 | MORECARE ---
CASE MANAGEMENT DISCHARGE SUMMARY PATIENT: GINGER AHUJA UNIT: [id number] ADM DATE: 06/29/20 AGE: 50 : 74 SEX: M ROOM/BED: D.2302 AUTHOR: OPAL,DOC PHYSICIAN: REFERRING PHYSICIAN: JAMI CALIX MD DATE OF SERVICE: 07/28/20 Discharge Plan Patient Name: GINGER AHUJA Facility: [facility]:[place] : 1970 Planned Disposition: Anticipated Discharge Date: Discharge Date: 07/27/2020 Expected LOS: Initial Reviewer: [email or web address] Initial Review Date: 06/29/2020 Generated: 07/28/20 9:51 am Comments DCP- Discharge Planning Updated by [email or web address]: Zee Obrien on 07/23/20 5:[address] REC TELEPHONE CALL FROM PRIMARY NURSE. PATIENT CANNOT BE TRANSFERED AN EMERGENCY ROOM PATIENT ARRIVED TO TAKE THE LAST BED AT [facility] ICU. DCP- Discharge Planning Updated by [id number]: Zee Obrien on 07/23/20 4:[address] TC TO [facility] , [facility]. PROVIDED WITH THE [facility] [employer]S CONTACT NUMBER, BY THE ER STAFF, CM SPOKE WITH EFRAIN, [facility] [employer]. CONFIRMED CRRT IS AVAILABLE AT THIS FACILITY. SHE WAS GOING TO VERIFY BED AVAILABILITY AND CALL BACK. BED IS AVAILABLE. UPDATED THE PATIENT'S PRIMARY NURSE, LUCIANO. PROVIDED PATIENT'S FACE SHEET INFORMATION AND CLINICAL REVIEW. PROVIDED [facility] MD CONTACT PHONE NUMBERS. SHE WILL HAVE HER MD CONTACT THE [facility] DOCTORS. AWAIT RESPONSE. DCP- Discharge Planning Updated by [id number]: Zee Obrien on 07/23/20 3:[address] TC BACK TO [facility] IN [place]. SPOKE WITH TIFFANIE. SITUATION WORSEN. [facility] IS ON ICU MAX AND ED DELAY. POSSIBILITY OF BED THAT OFFERS CRRT AT [facility], [place], [place]. CONTACT PHONE NUMBER- [phone]. DCP- Discharge Planning Updated by [id number]: Zee Obrien on 07/23/20 3:[address] 1530 TC TO F/U ON DECISION. [facility] WAS NOT IMMEDIATELY AVAILABLE. 1623 REC CB FROM [facility]A AT [facility]. PATIENT HAS BEEN DENIED DUE TO CAPACITY. DCP- Discharge Planning Updated by [id number]: Zee Obrien on 07/23/20 1:[address] TELEPHONE CALL TO [facility] IN [place] AT [phone] FAX [phone]. SPOKE WITH MARÍA. HE REQUESTED CM TO FAX FACE SHEET, H/P, PROGRESS NOTES FOR EACH SPECIALITY, MED REC, VENT RECORD, LABS , COVID TESTING, CXR AND OTHER PERTINENT CLINICAL FOR REVIEW. [facility] HAS CRRT HOWEVER NEED TO VERIFY ALL OF HIS NEEDS CAN BE MET., DCP- Discharge Planning Updated by [id number]: Zee Gordillos on 07/23/20 11:[address] CM received a request to assist with transfer for CRRT. Telephone call to [facility] physician call center. Spoke w/ Shyla. [facility] - critical ICU Max. No ICU Beds. Many waiting in ER. CM provided patient's name and contact phone number. Recommendation to extend search. TC to [facility]. Spoke w/ Evelyne. ICU at capacity. No available bed. Just came of Max. !0 people on their list. Reviewed referral. Answered questions and reviewed clinical. She requested the Renal MD contact as patient would be accepted to that service. CM faxed face sheet with DR Hamilton's contact phone number and DR Peters's contact phone number as he had written the order. CM also faxed renal note for 07/23/20. Evelyne stated by LR ICU board [facility] was also without ICU beds. TC to Sandra Bowden to ascertain which hospitals / medical centers offer this service outside of the [facility]. Possible [facility] in [place]. TC to [facility] Transfer [facility]. Spoke with Tiffanie. Just came off Max and no ICU beds available. She did state to call back later today perhaps a bed may open. DCP- Discharge Planning Updated by [id number]: Rachel Ballard on 07/17/20 8:[address] CM received a call from [facility] asking for notice when patient getting closer to discharge so they are prepared . CM will continue to follow and assist as needed with discharge planning / needs. DCP- Discharge Planning Updated by [id number]: Britt Sheng on 07/03/20 3:[address] Per Lucía Reyes apprenticeship representative, is working on HD chair/time/place. Coverage Notice Reviewer: [id number] Irena Robledo Notice Issued Date-Time: 07/08/2020 14:30 Notice Type: Patient Choice Letter Notice Delivered To: Patient Relationship to Patient: Self Poundmaster Name: Delivery Method: HAND - Hand Delivered Lindsey Days: Prior Verbal Notification: Recipient Understood Notice: Yes Recipient Signature: Yes Med Rec Note Co-signed by Attending: Coverage Notice Comment: [facility] IP [facility] Last DP export: 07/23/20 5:30 p Patient Name: GINGER AHUJA Page [id number] at 0852 All edits/amendments must be made on the electronic document DICTATION DATE: 07/28/20851 SHIP SUPERINTENDENT: SAVANAH 07/28/20851 RPT#: [id number] DC DATE:07/27/20 STATUS: DIS IN [facility] [address] [place] [address] END OF REPORT
== END 2020-07-27 00:30 | DRG 981 ==
LOC: D.M2 21:13 → D.ICU 21:57 → D.M2 21:57 → D.ICU 07-12 18:25
PROVIDERS: Family Medicine; Internal Medicine; Internal Medicine Hematology & Oncology; Internal Medicine Nephrology; Internal Medicine Pulmonary Disease; Surgery; ADMIT Family Medicine; ATTEND Family Medicine
PROC: 02HV33Z Insertion of Infusion Device into Superior Vena Cava, Percutaneous Approach (ICD-10-PCS; 2020-07-01)
PROC: B5181ZA Fluoroscopy of Superior Vena Cava using Low Osmolar Contrast, Guidance (ICD-10-PCS; 2020-07-01)
PROC: 0D9670Z Drainage of Stomach with Drainage Device, Via Natural or Artificial Opening (ICD-10-PCS; 2020-07-01)
PROC: 0JH63XZ Insertion of Tunneled Vascular Access Device into Chest Subcutaneous Tissue and Fascia, Percutaneous Approach (ICD-10-PCS; principal; 2020-07-01 08:00)
PROC: 0BH17EZ Insertion of Endotracheal Airway into Trachea, Via Natural or Artificial Opening (ICD-10-PCS; 2020-07-12)
PROC: 5A1955Z Respiratory Ventilation, Greater than 96 Consecutive Hours (ICD-10-PCS; 2020-07-12)
PROC: 03HY32Z Insertion of Monitoring Device into Upper Artery, Percutaneous Approach (ICD-10-PCS; 2020-07-12)
PROC: 0FBG0ZZ Excision of Pancreas, Open Approach (ICD-10-PCS; 2020-07-13)
PROC: 0FBG0ZZ Excision of Pancreas, Open Approach (ICD-10-PCS; 2020-07-16)
PROC: 0FBG0ZZ Excision of Pancreas, Open Approach (ICD-10-PCS; 2020-07-18)
PROC: 0FBG0ZZ Excision of Pancreas, Open Approach (ICD-10-PCS; 2020-07-22)
PROC: 0F9400Z Drainage of Gallbladder with Drainage Device, Open Approach (ICD-10-PCS; 2020-07-25)
PROC: 0FBG0ZZ Excision of Pancreas, Open Approach (ICD-10-PCS; 2020-07-25)
DX: I13.2 Hypertensive heart and chronic kidney disease with heart failure and with stage 5 chronic kidney disease, or end stage renal disease (principal); K85.90 Acute pancreatitis without necrosis or infection, unspecified; N18.6 End stage renal disease; E43 Unspecified severe protein-calorie malnutrition; A41.9 Sepsis, unspecified organism; R65.21 Severe sepsis with septic shock; J96.00 Acute respiratory failure, unspecified whether with hypoxia or hypercapnia; G93.41 Metabolic encephalopathy; E87.1 Hypo-osmolality and hyponatremia; I48.92 Unspecified atrial flutter; K56.600 Partial intestinal obstruction, unspecified as to cause; N17.9 Acute kidney failure, unspecified; I50.9 Heart failure, unspecified; Z99.2 Dependence on renal dialysis; D63.1 Anemia in chronic kidney disease; I25.10 Atherosclerotic heart disease of native coronary artery without angina pectoris; R00.0 Tachycardia, unspecified; Z68.29 Body mass index [BMI] 29.0-29.9, adult; K72.90 Hepatic failure, unspecified without coma